=== PATIENT | female | born 1955 | race Caucasian/White ===

== ENCOUNTER 2019-04-21 10:51 | Outpatient (CLI) | payer BC, SELFPAY ==
--- NOTE | 2019-04-21 12:15 | DI.RAD_ITS ---
SYMPTOM/DIAGNOSIS: WRIST PAIN, M25.532 LEFT WRIST: Three views were obtained. Carpal alignment appears within normal limits. No significant bony abnormality is seen.
== END 2019-04-21 11:11 ==
PROVIDERS: PCP Internal Medicine; Visit Provider Specialist/Technologist Athletic Trainer
DX: M25.532 Pain in left wrist (principal)
CPT/HCPCS: 73110

== ENCOUNTER 2019-06-02 12:53 | Outpatient (REF) | payer BC, SELFPAY ==
[2019-06-02 21:35] LABS: Abs Immature Grans 0.01 k/cumm (0.0-0.09); Absolute Basophil Count 0.03 k/cumm (0.0-0.2); Absolute Eosinophil Count 0.16 k/cumm (0.0-0.7); Absolute Lymphocyte Count 2.38 k/cumm (1.2-3.4); Absolute Monocyte Count 0.36 k/cumm (0.11-0.7); Absolute Neutrophil Count 3.07 k/cumm (1.2-6.7); Basophils % 0.5; Eosinophils % 2.7; HGB 13.6 g/dL (12.0-15.5); Immature Grans % 0.2; Lymphocytes % 39.6; Mean Corp. HGB Concentration 32.4 g/dL (32.0-36.0); Mean Corpuscular Hemoglobin 29.3 pg (27.0-33.0); Mean Corpuscular Volume 90.5 fL (80-95); Mean Platelet Volume 10.1 fL (8.0-11.0); Platelet Count 263 x1000/uL (130-400); RBC 4.64 m/cumm (4.00-5.20); RBC Distribution Width 14.5 % (11.7-14.6); White Blood Cell Count 6.01 k/cumm (4.4-10.8)
[2019-06-02 21:57] LABS: ALT 36 U/L (14-59); AST 25 U/L (15-37); Albumin 3.7 g/dL (3.4-5.0); Alkaline Phosphatase 87 U/L (46-116); Anion Gap 7.8 mmol/L (3-11); BUN 15 mg/dL (7-18); Bilirubin, Total 0.4 mg/dL (0.2-1.0); CO2 30.2 mmol/L (21.0-32.0); CREATININE 0.64 mg/dL (0.55-1.02); Calcium 9.1 mg/dL (8.5-10.1); Chloride 104 mmol/L (98-107); Glucose 90 mg/dL (70-100); Potassium 4.4 mmol/L (3.5-5.1); Sodium 142 mmol/L (136-145); TSH (W/Ref FT4) 0.82 uIU/mL (0.36-3.74); Total Protein 6.9 g/dL (6.4-8.2)
[2019-06-04 11:43] LABS: Lyme Ab w Rflx to Lyme Confirm Negative
[2019-06-05 17:00] LABS: Anaplasma phagocytophilum Negative (Negative); B. miyamotoi PCR Negative (Negative); Babesia divergens/MO-1 Negative (Negative); Babesia duncani Negative (Negative); Babesia microti Negative (Negative); Ehrlichia chaffeensis Negative (Negative); Ehrlichia ewingii/canis Negative (Negative); Ehrlichia muris eauclairensis Negative (Negative)
== END 2019-06-02 13:13 ==
LOC: NCHCN 12:53
PROVIDERS: PCP Internal Medicine; Visit Provider Specialist/Technologist Athletic Trainer
DX: Z00.00 Encounter for general adult medical examination without abnormal findings (principal); R53.83 Other fatigue
CPT/HCPCS: 80053; 87798; 84443; 85025; 86618

== ENCOUNTER 2020-07-15 14:44 | Outpatient (REF) | payer BC, SELFPAY ==
[2020-07-20 02:02] LABS: SARS-CoV-2 RNA Undetected (Undetected); SARS-CoV-2 Specimen Source Nasal
== END 2020-07-15 15:04 ==
LOC: NCHCN 14:44
PROVIDERS: PCP Internal Medicine; Visit Provider Internal Medicine
DX: Z11.59 Encounter for screening for other viral diseases (principal)
CPT/HCPCS: U0003

== ENCOUNTER 2020-09-05 18:21 | Outpatient (REF) | payer BC, SELFPAY ==
[2020-09-05 20:30] LABS: Abs Immature Grans 0.02 10^3/uL (0.0-0.06); Absolute Basophil Count 0.02 10^3/uL (0.0-0.2); Absolute Eosinophil Count 0.05 10^3/uL (0.0-0.7); Absolute Lymphocyte Count 2.58 10^3/uL (1.2-3.4); Absolute Monocyte Count 0.42 10^3/uL (0.1-0.8); Absolute Neutrophil Count 4.59 10^3/uL (1.2-6.7); Basophils % 0.3; Eosinophils % 0.7; HCT 40.5 % (36.0-46.0); Immature Grans % 0.3; Lymphocytes % 33.6; MCH 29.3 pg (27.0-33.0); MCHC 32.1 % (32.0-36.0); MCV 91.4 fL (80-95); MPV 9.8 fL (8.0-11.0); Monocytes % 5.5; Neutrophils % 59.6; Nucleated RBC 0 %; Platelet Count 226 10^3/uL (130-400); RBC 4.43 10^6/uL (3.93-5.22); RDW 14.4 % (11.7-14.6); RDW-SD 48.7 fL; WBC 7.68 10^3/uL (4.4-10.8)
[2020-09-05 21:03] LABS: ALT 23 U/L (14-59); AST 22 U/L (15-37); Albumin 3.7 g/dL (3.4-5.0); Alkaline Phosphatase 78 U/L (46-116); BUN 17 mg/dL (7-18); Bilirubin, Total 0.3 mg/dL (0.2-1.0); CREATININE 0.61 mg/dL (0.55-1.02); Calcium 8.7 mg/dL (8.5-10.1); Glucose 87 mg/dL (74-106); TSH (W/Ref FT4) 0.72 uIU/mL (0.36-3.74); Total Protein 6.5 g/dL (6.4-8.2)
[2020-09-05 21:07] LABS: Chloride 104 mmol/L (98-107); Potassium 4.1 mmol/L (3.5-5.1); Sodium 139 mmol/L (136-145)
== END 2020-09-05 18:41 ==
LOC: NCHCN 18:21
PROVIDERS: PCP Internal Medicine; Visit Provider Family Medicine
DX: R53.83 Other fatigue (principal); R42 Dizziness and giddiness
CPT/HCPCS: 80053; 84443; 85025

== ENCOUNTER 2020-11-04 04:23 | Outpatient (CLI) | payer BC, SELFPAY ==
--- NOTE | 2020-11-04 | DI.MAMMO_ITS ---
EXAM: MG MAMMO SCREENING CLINICAL HISTORY: SCREENING, Z12.31 TECHNIQUE: Bilateral full field digital CC and MLO mammographic images were obtained with 3D tomosyn thesis and utilizing computer aided detection (CAD). COMPARISON: Available for comparison. FINDINGS: Masses/Architectural Distortion: There is an asymmetry in the upper left breast on the MLO view. Microcalcifications: No suspicious pleomorphic-type are seen. Skin Thickening/Nipple Retraction: None. IMPRESSION: 1. Asymmetry in the upper left breast on the MLO view 6 cm from the nipple. 2. This area should be further evaluated with spot compression view. Ultrasound may be indicated at that time. BI-RADS Category 0 - Assessment Incomplete: Need additional imaging evaluation Breast Density - Category C - Heterogeneously dense Breast density category C or D implies that the patient has dense breast tissue. Dense breast tissue is very common and is not abnormal but dense breast tissue can make it harder to find cancer on a ma mmogram. Also, dense breast tissue may increase their breast cancer risk. This information about the result of the mammogram report was provided to the patient to raise their awareness. Use this report when you speak with the patient about their risks for breast cancer, which includes their family hist ory. At that time, you may recommend for more screening tests (Ultrasound or MRI) as they might be us eful based on their risk. A negative radiographic report should not delay biopsy if a dominant or clinically suspicious mass is present. Up to ten percent of cancers are not identified on mammography. A negative report may reinforce clinical impression. Adenosis and dense breasts may obscure an underlying neoplasm. False positive reports average 6 to 10%. Patient will receive a letter notifying them of these results.
== END 2020-11-04 04:43 ==
PROVIDERS: PCP Internal Medicine; Visit Provider Nurse Practitioner Women's Health
DX: Z12.31 Encounter for screening mammogram for malignant neoplasm of breast (principal); R92.8 Other abnormal and inconclusive findings on diagnostic imaging of breast
CPT/HCPCS: 77063; 77067

== ENCOUNTER 2020-11-09 02:30 | Outpatient (CLI) | payer BC, SELFPAY ==
--- NOTE | 2020-11-09 | DI.US_ITS ---
EXAM: MG MAMMO SCREEN CALL BACK UNI and U/S breast LT limited CLINICAL HISTORY: F/U MAMMO, ASYMMETRY UPPER BREAST. TECHNIQUE: Craniocaudal and mediolateral oblique Full Field Digital Mammography views of the left br east with Computer Aided Diagnosis followed by Tomosynthesis and left breast ultrasound. COMPARISON: Previous for comparison. FINDINGS: Mammography/Tomosynthesis: Masses/Architectural Distortion: None seen. Microcalcifictions: No suspicious pleomorphic-type are seen. Skin Thickening/Nipple Retraction: None. Left breast US: Echotexture: Normal appearance of the glandular tissue. Shadowing: No suspicious foci. Cyst: None. Solid lesions: None seen. Ductal dilation: None. IMPRESSION: 1. No evidence of malignancy is noted. 2. A six-month follow-up left mammogram is recommended for re-evaluation. 3. The findings were discussed with the patient on the date of the examination. BI-RADS Category 3 - 6 month - Probably Benign Finding: Recommend follow-up mammography in 6 months Breast Density - Category C - Heterogeneously dense Breast density Category C or D implies that the patient has dense breast tissue. Dense breast tissue can make it harder to find cancer on a mammogram. Dense breast tissue is also associated with an incr eased risk of breast cancer. This information about the result of the mammogram report was provided to the patient to raise their awareness. Use this report when you speak with the patient about their risks for breast cancer, which includes their family history. At that time, you may recommend additional screening tests (Ultrasoun d or MRI) as these tests may add significant information. A negative radiographic report should not delay biopsy if a dominant or clinically suspicious mass is present. Up to ten percent of cancers are not identified on mammography. A negative report may reinforce clinical impression. Adenosis and dense breasts may obscure an underlying neoplasm. False positive reports average 6 to 10%. Patient will receive a letter notifying them of these results.
== END 2020-11-09 02:50 ==
PROVIDERS: PCP Internal Medicine; Visit Provider Nurse Practitioner Women's Health
DX: Z12.31 Encounter for screening mammogram for malignant neoplasm of breast (principal); R92.8 Other abnormal and inconclusive findings on diagnostic imaging of breast; N64.59 Other signs and symptoms in breast
CPT/HCPCS: 76642; 77063; 77067

== ENCOUNTER 2020-12-19 21:32 | Outpatient (REF) | payer BC, SELFPAY ==
[2020-12-21 10:51] LABS: Lyme Ab w Rflx to Lyme Confirm Negative (Negative)
[2020-12-21 12:53] LABS: COVID-19 RT-PCR UVMMC Result Negative (Negative)
[2020-12-22 17:23] LABS: Anaplasma phagocytophilum Negative (Negative); B. miyamotoi PCR Negative (Negative); Babesia divergens/MO-1 Negative (Negative); Babesia duncani Negative (Negative); Babesia microti Negative (Negative); Ehrlichia chaffeensis Negative (Negative); Ehrlichia ewingii/canis Negative (Negative); Ehrlichia muris eauclairensis Negative (Negative)
== END 2020-12-19 21:33 | disposition home or self-care (01) ==
LOC: NCHCN 21:32
PROVIDERS: PCP Internal Medicine; Visit Provider Internal Medicine
DX: R53.83 Other fatigue (principal); Z20.822 Contact with and (suspected) exposure to COVID-19
CPT/HCPCS: 87798; U0003; 86618

== ENCOUNTER 2020-12-30 15:26 | Outpatient (CLI) | payer BC, SELFPAY ==
--- NOTE | 2020-12-30 12:34 | DI.RAD_ITS ---
Exam(s) XR RIBS RT W PA LAT CHEST EXAM: XR RIBS RT W PA LAT CHEST CLINICAL HISTORY: PLEURITIC CHEST PAIN, R07.81, CHEST WALL PAIN, NO TRAUMA TECHNIQUE: 2D digital imaging was performed. COMPARISON: No exams were available for comparison FINDINGS: MEDIASTINUM: Normal. HEART: Normal. PULMONARY VASCULATURE: Normal. LUNGS: Clear. PLEURAL SPACE: No pleural effusion or pneumothorax. BONE:Normal. RIGHT RIBS: Normal. OTHER FINDINGS:Normal. IMPRESSION: 1. No acute pulmonary findings. 2. Unremarkable right ribs. DATA REPOSITORY: RADIATION DOSE DELIVERED:
== END 2020-12-30 15:46 ==
PROVIDERS: PCP Internal Medicine; Visit Provider Internal Medicine
DX: R07.81 Pleurodynia (principal); R07.89 Other chest pain
CPT/HCPCS: 71046; 71100

== ENCOUNTER 2022-01-31 21:36 | Outpatient (REF) | payer MEDICARE, BC, SELFPAY ==
[2022-01-31 21:36] LABS: Abs Immature Grans 0.01 10^3/uL (0.0-0.06); Absolute Basophil Count 0.06 10^3/uL (0.0-0.2); Absolute Eosinophil Count 0.16 10^3/uL (0.0-0.7); Absolute Lymphocyte Count 2.98 10^3/uL (1.2-3.4); Absolute Monocyte Count 0.34 10^3/uL (0.1-0.8); Absolute Neutrophil Count 2.82 10^3/uL (1.2-6.7); Basophils % 0.9; Eosinophils % 2.5; HGB 13.4 g/dL (11.2-15.7); Immature Grans % 0.2; Lymphocytes % 46.8; MCH 28.9 pg (27.0-33.0); MCHC 31.9 % (32.0-36.0); MCV 91 fL (80-95); MPV 10.3 fL (8.0-11.0); Monocytes % 5.3; Neutrophils % 44.3; Platelet Count 282 10^3/uL (130-400); RBC 4.64 10^6/uL (3.93-5.22); RDW 14.5 % (11.7-14.6); RDW-SD 48.3 fL; WBC 6.37 10^3/uL (4.4-10.8)
[2022-01-31 21:47] LABS: ALT 29 U/L (14-59); AST 27 U/L (15-37); Albumin 3.9 g/dL (3.4-5.0); Alkaline Phosphatase 77 U/L (46-116); Anion Gap 8.2 mmol/L (3-11); BUN 16 mg/dL (7-18); Bilirubin, Total 0.3 mg/dL (0.2-1.0); CO2 28.8 mmol/L (21.0-32.0); CREATININE 0.6 mg/dL (0.55-1.02); Calcium 9.2 mg/dL (8.5-10.1); Chloride 104 mmol/L (98-107); Glucose 83 mg/dL (74-106); Lipase 125 U/L (73-393); Potassium 3.9 mmol/L (3.5-5.1); Sodium 141 mmol/L (136-145); Total Protein 6.6 g/dL (6.4-8.2)
== END 2022-01-31 21:37 | disposition home or self-care (01) ==
LOC: NCHCN 21:36
PROVIDERS: PCP Internal Medicine; Visit Provider Family Medicine
DX: K30 Functional dyspepsia (principal)
CPT/HCPCS: 80053; 83690; 85025

== ENCOUNTER 2022-05-03 14:57 | Outpatient (REF) | payer MEDICARE, BC, SELFPAY ==
[2022-05-03 20:59] LABS: Abs Immature Grans 0.01 10^3/uL (0.0-0.06); Absolute Basophil Count 0.05 10^3/uL (0.0-0.2); Absolute Eosinophil Count 0.15 10^3/uL (0.0-0.7); Absolute Lymphocyte Count 2.99 10^3/uL (1.2-3.4); Absolute Monocyte Count 0.35 10^3/uL (0.1-0.8); Absolute Neutrophil Count 2.69 10^3/uL (1.2-6.7); Basophils % 0.8; Eosinophils % 2.4; HCT 40.8 % (36.0-46.0); HGB 13.2 g/dL (11.2-15.7); Immature Grans % 0.2; Lymphocytes % 47.9; MCH 29.4 pg (27.0-33.0); MCHC 32.4 % (32.0-36.0); MCV 91 fL (80-95); MPV 9.7 fL (8.0-11.0); Monocytes % 5.6; Neutrophils % 43.1; Platelet Count 273 10^3/uL (130-400); RBC 4.49 10^6/uL (3.93-5.22); RDW 13.7 % (11.7-14.6); RDW-SD 46.3 fL; WBC 6.24 10^3/uL (4.4-10.8)
[2022-05-03 21:01] LABS: ESR 2 mm/hr (0-30)
[2022-05-03 21:14] LABS: C-Reactive Protein < 0.05 mg/dL (0.0-0.3)
[2022-05-03 21:25] LABS: D-Dimer 439 ng/mlFEU (<500)
== END 2022-05-03 14:58 | disposition home or self-care (01) ==
LOC: LBN 14:57
PROVIDERS: PCP Internal Medicine; Visit Provider Nurse Practitioner Family
DX: M79.604 Pain in right leg (principal)
CPT/HCPCS: 85652; 85025; 85379; 86140

== ENCOUNTER → 2022-05-03 15:27 | Outpatient (CLI) | payer MEDICARE, BC, SELFPAY ==
--- NOTE | 2022-05-03 | DI.RAD_ITS ---
Exam(s) XR TIB/FIB RT EXAM: XR TIB/FIB RT CLINICAL HISTORY: RIGHT LEG PAIN-M79.604. TECHNIQUE: 2D digital imaging was performed. COMPARISON: No exams were available for comparison FINDINGS: Two views No fracture evident. Bone density age-appropriate. No osseous lesions. No radiopaque body. IMPRESSION: Fracture evident. DATA REPOSITORY: RADIATION DOSE DELIVERED:
== END ==
PROVIDERS: PCP Internal Medicine; Visit Provider Nurse Practitioner Family
DX: M79.604 Pain in right leg (principal)
CPT/HCPCS: 73590

== ENCOUNTER 2022-09-22 13:32 | Emergency (ER) | payer MEDICARE, BC, SELFPAY ==
[2022-09-22] VITALS (42 sets, daily range): BP systolic 102–143; BP diastolic 48–83; PULSE 55–94; RESP 16–20; TEMP 35.9; O2SAT 95–100
--- NOTE | 2022-09-22 13:30 | RT.EKG_ITS ---
APPROVED REPORT Exam: Resting ECG Reason for Exam: chest Pain Patient Location: E HR:65 bpm ECG Measurements Heart Rate 65 AXIS DE 175 P -20 QRSd 101 QRS 41 QT 403 T 23 QTc 418 Conclusion Sinus rhythm...normal P axis, V-rate 60- 99
--- NOTE | 2022-09-22 14:00 | DI.RAD_ITS ---
Exam(s) XR PORTABLE CHEST AP EXAM: XR PORTABLE CHEST AP CLINICAL HISTORY: Chest Pain, SOB. TECHNIQUE: 2D digital imaging was performed. COMPARISON: CR XR RIBS RT W PA LAT CHEST from 12/30/2020 FINDINGS: Single AP portable view. Heart size is upper normal. The mediastinum is not widened. Lungs are clear. No infiltrates nor obvious pleural effusions. Chronic appearing deformity of the left humeral head-neck probably healed fracture site. IMPRESSION: No acute pulmonary findings on this single AP portable view of the chest. DATA REPOSITORY: RADIATION DOSE DELIVERED:
--- NOTE | 2022-09-22 14:06 | ED.GENADUL_ITS ---
Discharge Plan Disposition Patient Disposition: Home Condition: Stable Discharge Details Clinical Impression: Right-sided chest pain, COVID-19 Primary Care Provider: French Richter ED Provider: Gianni Martinez Home Meds and New Rx's Prescriptions: Continued multivitamin [Daily Multi-Vitamin] 1 EACH tablet 1 tab PO DAILY Tumeric 1 cap PO DAILY ibuprofen 200 MG tablet 400 mg PO PRN PRN fluticasone propionate 50 mcg/actuation spray,suspension 1 spray INTRANASAL DAILY Label Comments: SPRAY 1 SPRAY INTO BOTH NOSTRILS ONCE A DAY NEEDED biotin 500 mcg Capsule 500 mcg PO DAILY Discharge Instructions Instructions: Chest Pain (ED), COVID-19 (Coronavirus Disease 2019) (ED) Additional Instructions: Work-up today is positive for COVID, unclear if this is a reinfection or secondary to your infection back in July. Rapid cardiac rule out and CTA of your chest is unremarkable for any obvious emergent process. You have declined any medication for analgesia. Please watch for new or worsening symptoms and return to the ER for any concerns. Otherwise please contact your primary care provider on Saturday to discuss your ER visit and need for outpatient reevaluation. Medical Decision Making <Eduarda Presley NP - Last Filed: 09/22/22 16:06> 67-year-old female presents to the ER with chief complaint of right upper sided chest pain which began prior to arrival this morning. She reports that she woke up with this pain. She was at the grocery store had a headache and had severe worsening increased pain which is worse with deep breathing, it is reproducible to palpation. She also reports some shortness of breath. She recently finished antibiotics approximately a week ago for sinusitis and she also reports prior to that she had COVID. She does endorse cough with yellow productive sputum and drainage nasal drainage. Her headache has improved. No neurodeficits noted. Lungs are clear to auscultation bilaterally. EKG was reviewed by Dr. Lenny RICHARDSON, ER attending, old EKG available for review please see his official report. No evidence of STEMI. Patient was given 324 mg aspirin. Cardiac work-up ordered including serial troponin, D-dimer, portable chest x- ray, fluvid, Differential diagnosis includes but not limited to pneumonia, pneumothorax, costochondritis, CAD, NSTEMI Will consider chest CT pending labs. Majority of the work up is negative initial troponin is within normal limits, D-dimer is elevated at 757 which is slightly over the age-adjusted cut off. She is COVID-positive. CTA rule out PE ordered. Care is to be handed off to oncoming provider Gianni Martinez pending CT result and serial troponin at 1700. Medical Records Medical records reviewed: Yes I reviewed the patient's medical records. Lab Data Lab results reviewed: Yes I reviewed the patient's lab results. Labs: Laboratory Tests Range/Units 09/22/22 09/22/22 09/22/22 14:00 14:00 14:00 WBC (4.4-10.8) 10^3/uL 5.89 RBC (3.93-5.22) 10^6/uL 4.66 Hgb (11.2-15.7) g/dL 13.4 Hct (36.0-46.0) % 41.3 MCV (80-95) fL 89 MCH (27.0-33.0) pg 28.8 MCHC (32.0-36.0) % 32.4 RDW (11.7-14.6) % 13.9 Plt Count (130-400) 10^3/uL 261 MPV (8.0-11.0) fL 9.1 Immature Gran % 0.2 Neutrophils % 47.2 Lymphocytes % 44.5 Monocytes % 5.9 Eosinophils % 1.9 Basophils % 0.3 Nucleated RBC % (0.0-0.3) % 0.0 Absolute Neutrophils (1.2-6.7) 10^3/uL 2.78 Absolute Lymphocytes (1.2-3.4) 10^3/uL 2.62 Absolute Monocytes (0.1-0.8) 10^3/uL 0.35 Absolute Eosinophils (0.0-0.7) 10^3/uL 0.11 Absolute Basophils (0.0-0.2) 10^3/uL 0.02 D-Dimer (<500) ng/mlFEU 757 H Sodium (136-145) mmol/L 141 Potassium (3.5-5.1) mmol/L 4.1 Chloride (98-107) mmol/L 105 Carbon Dioxide (21.0-32.0) mmol/L 28.4 Anion Gap (3-11) mmol/L 7.6 BUN (7-18) mg/dL 15 Creatinine (0.55-1.02) mg/dL 0.6 Est GFR (CKD-EPI 2020) (mL/min/1.73m2) 97.71 Glucose (74-106) mg/dL 89 Calcium (8.5-10.1) mg/dL 9.3 Magnesium (1.8-2.4) mg/dL 1.8 Total Bilirubin (0.2-1.0) mg/dL 0.4 AST (15-37) U/L 28 ALT (14-59) U/L 28 Alkaline Phosphatase (46-116) U/L 81 Troponin I (<or=60) ng/L < 50 Total Protein (6.4-8.2) g/dL 7.1 Albumin (3.4-5.0) g/dL 3.8 COVID-19 Source SARS-CoV-2 (PCR) (Negative) Influenza Type A (PCR) (Negative) Influenza Type B (PCR) (Negative) RSV (PCR) (Negative) Range/Units 09/22/22 14:15 WBC (4.4-10.8) 10^3/uL RBC (3.93-5.22) 10^6/uL Hgb (11.2-15.7) g/dL Hct (36.0-46.0) % MCV (80-95) fL MCH (27.0-33.0) pg MCHC (32.0-36.0) % RDW (11.7-14.6) % Plt Count (130-400) 10^3/uL MPV (8.0-11.0) fL Immature Gran % Neutrophils % Lymphocytes % Monocytes % Eosinophils % Basophils % Nucleated RBC % (0.0-0.3) % Absolute Neutrophils (1.2-6.7) 10^3/uL Absolute Lymphocytes (1.2-3.4) 10^3/uL Absolute Monocytes (0.1-0.8) 10^3/uL Absolute Eosinophils (0.0-0.7) 10^3/uL Absolute Basophils (0.0-0.2) 10^3/uL D-Dimer (<500) ng/mlFEU Sodium (136-145) mmol/L Potassium (3.5-5.1) mmol/L Chloride (98-107) mmol/L Carbon Dioxide (21.0-32.0) mmol/L Anion Gap (3-11) mmol/L BUN (7-18) mg/dL Creatinine (0.55-1.02) mg/dL Est GFR (CKD-EPI 2020) (mL/min/1.73m2) Glucose (74-106) mg/dL Calcium (8.5-10.1) mg/dL Magnesium (1.8-2.4) mg/dL Total Bilirubin (0.2-1.0) mg/dL AST (15-37) U/L ALT (14-59) U/L Alkaline Phosphatase (46-116) U/L Troponin I (<or=60) ng/L Total Protein (6.4-8.2) g/dL Albumin (3.4-5.0) g/dL COVID-19 Source Nasopharynx SARS-CoV-2 (PCR) (Negative) Positive A Influenza Type A (PCR) (Negative) Negative Influenza Type B (PCR) (Negative) Negative RSV (PCR) (Negative) Negative <DEYSI Lawton - Last Filed: 09/22/22 18:34> 67-year-old female presents to the ER with chief complaint of right upper sided chest pain which began prior to arrival this morning. She reports that she woke up with this pain. She was at the grocery store had a headache and had severe worsening increased pain which is worse with deep breathing, it is reproducible to palpation. She also reports some shortness of breath. She recently finished antibiotics approximately a week ago for sinusitis and she also reports prior to that she had COVID. She does endorse cough with yellow productive sputum and drainage nasal drainage. Her headache has improved. No neurodeficits noted. Lungs are clear to auscultation bilaterally. EKG was reviewed by Dr. Lenny RICHARDSON, ER attending, old EKG available for review please see his official report. No evidence of STEMI. Patient was given 324 mg aspirin. Cardiac work-up ordered including serial troponin, D-dimer, portable chest x- ray, fluvid, Differential diagnosis includes but not limited to pneumonia, pneumothorax, costochondritis, CAD, NSTEMI Will consider chest CT pending labs. Majority of the work up is negative initial troponin is within normal limits, D-dimer is elevated at 757 which is slightly over the age-adjusted cut off. She is COVID-positive. CTA rule out PE ordered. Care is to be handed off to oncoming provider Gianni Martinez pending CT result and serial troponin at 1700. 1530: Gianni Martinez PA-C I assumed care of this 67-year-old female from my colleague PACO Presley, please see her initial HPI and examination. At time of signout awaiting results of CTA and delta troponin. Delta troponin remains less than 50. CTA unremarkable for PE. Discussed CTA and delta troponin results with patient. Patient reports a dull ache, reproducible right side of her chest. Lungs are clear to auscultation. She is speaking in full sentences, O2 sat 97% on room air, remains hemodynamically stable. We discussed analgesia such as Toradol but patient declined any medication, reports that she does not want to mask the symptoms. Patient is relieved that her work-up is unremarkable and she is comfortable discharge. We did discuss that her COVID is positive, difficult to say whether this is a long COVID from her initial infection back in July or if this is reinfection, patient does report URI-like symptoms for the past 3 weeks. Clinically she appears well, no acute respiratory symptoms. Standard discharge and return precautions were provided. Patient understands, is agreeable to this plan, and has no additional questions or concerns upon discharge. This documentation was generated using [employer] dictation system, please disregard any oddities of phrase or misspellings. Medical Records Medical records reviewed: Yes I reviewed the patient's medical records. Imaging Data Radiologic Study: Attestation: I personally reviewed and interpreted this imaging study as follows: Imaging: CT Scan Radiologist's impression: PROCEDURE INFORMATION: Exam: CTA Chest With Contrast Exam date and time: 09/22/2022 4:54 PM Age: 67 years old Clinical indication: Other: Chest pain, SOB, R/O pe elevated dimer TECHNIQUE: Imaging protocol: Computed tomographic angiography of the chest with contrast. 3D rendering (Not supervised by radiologist): MIP and/or 3D reconstructed images were created by the technologist. Contrast material: OMNIPAQUE 350; Contrast volume: 80 ml; Contrast route: INTRAVENOUS (IV); COMPARISON: CT CHEST FOR PULMONARY EMBOLUS 09/14/2016 10:22 PM FINDINGS: Pulmonary arteries: Normal. No pulmonary emboli. Aorta: Unremarkable. No aortic aneurysm. No aortic dissection. Lungs: Unremarkable. No consolidation. No masses. Pleural spaces: Unremarkable. No pneumothorax. No pleural effusion. Heart: Unremarkable. No cardiomegaly. No pericardial effusion. Lymph nodes: Unremarkable. No enlarged lymph nodes. Diaphragm: Small hiatal hernia. There is small hiatal hernia. Liver: 0.6 cm in the anterior right dome liver unchanged is a small cyst hemangioma. Bones/joints: There is compression fracture of T4 with moderate to marked loss of height. There is mild loss of height superior endplate of T6-T7 and superior endplate L1. These fractures have been stable since prior exam. L1 fracture was not previously evaluated. There is old fracture of the posterior 1st rib. Soft tissues: Unremarkable.IMPRESSION: 1. No pulmonary embolism or aortic dissection. 2. No active pulmonary disease. 3. Small hiatal hernia. HPI <Eduarda Presley NP - Last Filed: 09/22/22 16:06> General Mode of arrival: ambulatory . Date/Time Provider Initiated Documentation: 09/22/22 14:01 . Limitations to Documentation: no limitations . Information obtained by: patient, RN notes reviewed and old records reviewed . HPI Narrative: 67-year-old female presents to the ER with chief complaint of right upper sided chest pain which began prior to arrival this morning. She reports that she woke up with this pain. She was at the grocery store had a headache and had severe worsening increased pain which is worse with deep breathing, it is reproducible to palpation. She also reports some shortness of breath. She recently finished antibiotics approximately a week ago for sinusitis and she also reports prior to that she had COVID. She does endorse cough with yellow productive sputum and drainage nasal drainage. Her headache has improved. No neurodeficits noted. Lungs are clear to auscultation bilaterally. Related Data Home Medications Medication Instructions Recorded Confirmed Tumeric 1 cap PO DAILY 09/14/16 09/22/22 multivitamin (Daily Multi-Vitamin 1 tab PO DAILY 09/14/16 09/22/22 tablet) ibuprofen 200 mg tablet 400 mg PO PRN PRN 05/01/17 09/22/22 biotin 500 mcg capsule 500 mcg PO DAILY 09/22/22 09/22/22 fluticasone propionate 50 1 spray intranasal DAILY 09/22/22 09/22/22 mcg/actuation nasal spray,suspension Allergies Allergy/AdvReac Type Severity Reaction Status Date / Time No Known Allergies Allergy Unverified 09/22/22 13:51 General Stated Complaint: Chest Pain PARKER: 3 Review of Systems <Eduarda Presley NP - Last Filed: 09/22/22 16:06> All systems reviewed & are unremarkable except as noted in HPI and below ENT Ears, Nose, Mouth, and Throat: Denies dizziness Cardiovascular Cardiovascular: Reports as per HPI, Reports chest pain at rest, Denies syncope, Denies pedal edema, Denies leg edema, Reports radiating jaw, neck or arm pain (Right), Reports dyspnea and Reports dyspnea on exertion Respiratory Respiratory: Reports as per HPI, Reports change in phlegm color, Reports cough, Denies hemoptysis, Reports pain with cough, Reports dyspnea, Reports dyspnea on exertion and Denies wheezing Gastrointestinal Gastrointestinal: Denies abdominal pain, Denies diarrhea, Denies nausea and Denies vomiting Neurologic Neurologic: Denies confusion, Denies dizziness and Denies syncope Psychiatric Psychiatric: Denies confusion Allergic/Immunologic Allergic/Immunologic: Denies wheezing PFSH <Eduarda Presley NP - Last Filed: 09/22/22 16:06> All Active Problems (Updated 09/22/22 @ 18:33 by DEYSI Lawton) Right-sided chest pain (Acute) COVID-19 (Acute) Social History Smoking/Tobacco Use Status: Never Smoking risk assessment performed?: Yes Alcohol Intake: current Alcohol Intake frequency: holidays/special occasions only Drug use: Never Substance use type: does not use Do you feel safe at home: Yes Do you feel safe in your relationship?: Yes Exam <Eduarda Presley NP - Last Filed: 09/22/22 16:06> Narrative Exam Narrative: Constitutional: Alert and oriented x3. Appears stated age. Normal body habitus. Head: Normocephalic, no trauma. Eyes: Pupils PERRL, Red reflex noted, EOM's intact. Right horizontal nystagmus noted, eyelids symmetrical without lesions, discharge, or swelling. ENT: Bilateral TM's WNL, External ear normal to inspection, no mastoid TTP, swelling, or erythema, Nasal turbinates boggy, green nasal discharge. Normal dentition, Posterior pharynx WNL, no exudate. Chest: RRR, Normal S1, S2, distal pulses intact. Right-sided chest pain tenderness with palpation which is reproducible. No significant lower extremity swelling, Resp: Lungs clear to auscultation bilaterally, no wheezes, rales, or rhonchi. Abdomen: Soft, non-distended, Normoactive bowel sounds all 4 quads. Musculoskeletal: Normal gait, 5/5 strength to all four extremities. No focal neurodeficits noted. Skin: No suspicious rashes or lesions. Capillary refill less than 2 sec. Neurologic: Cranial nerves II-XII intact. Alert and oriented x 3. Motor: No deficits noted. Sensory: Intact bilaterally all 4 extremities. Reflexes: DTR's intact bilaterally.. Hematologic/Lymphatic: No ecchymosis, no lymphadenopathy. Course <Eduarda Presley NP - Last Filed: 09/22/22 16:06> Vital Signs Vital signs: Vital Signs Temperature 35.9 C L 09/22/22 13:40 Pulse 94 H 09/22/22 13:40 Respiratory Rate 20 09/22/22 13:40 Blood Pressure 143/76 H 09/22/22 13:40 Pulse Oximetry 98 09/22/22 13:40 Temperature 35.9 C L 09/22/22 13:40 Temperature Source Skin 09/22/22 13:40 Pulse 94 H 09/22/22 13:40 Respiratory Rate 20 09/22/22 13:54 Respiratory Effort 09/22/22 13:54 Respiratory Depth Normal 09/22/22 13:54 Respiratory Pattern Normal 09/22/22 13:54 Blood Pressure 143/76 H 09/22/22 13:40 Blood Pressure Position Sitting 09/22/22 13:40 Pulse Oximetry 98 09/22/22 13:40 Oxygen Delivery Method Room Air 09/22/22 13:40 Oxygen Flow Rate 0 09/22/22 13:40 Pain Level 8 09/22/22 13:54 Sign Out <Eduarda Presley NP - Last Filed: 09/22/22 16:06> Sign Out Data: Sign Out Comment: Covid Positive, Pending CTA Chest R/O PE. Right sided Chest pain SOB, D-DImer elevated. Neg CXR Last updated by Eduarda Presley NP at 09/22/22 16:02 PAWSS <Eduarda Presley NP - Last Filed: 09/22/22 16:06> Have you Been Recently Intoxicated or Drunk Within the Last 30 days?: No Have you Ever Experienced Previous Episodes of Alcohol Withdrawal?: No Have you ever Experienced Withdrawal Seizures?: No Have you ever Experienced Delirium Tremens(DT)s?: No Have you ever undergone Alcohol Rehabilitation Treatment (i.e, inpt ot outpatient treatment programs)?: No Have you ever Experienced Blackouts?: No Have you ever Combined Alcohol with other Downers within the last 90 days?: No Have you ever Combined Alcohol with any other Substance of Abuse during the last 90 days?: No Positive Blood Alcohol level on Presentation? [PCS.BAL]: No Evidence of Increased Autonomic Activity (i.e. HR>120, tremor, sweating, agitation, nausea)?: No Result: 0 <DEYSI Lawton - Last Filed: 09/22/22 18:34> Result: 0
[2022-09-22] MEDS: Aspirin 81 MG CHEW 324 MG CH (14:17)
[2022-09-22 14:26] LABS: Abs Immature Grans 0.01 10^3/uL (0.0-0.06); Absolute Basophil Count 0.02 10^3/uL (0.0-0.2); Absolute Eosinophil Count 0.11 10^3/uL (0.0-0.7); Absolute Lymphocyte Count 2.62 10^3/uL (1.2-3.4); Absolute Monocyte Count 0.35 10^3/uL (0.1-0.8); Absolute Neutrophil Count 2.78 10^3/uL (1.2-6.7); Basophils % 0.3; Eosinophils % 1.9; HCT 41.3 % (36.0-46.0); HGB 13.4 g/dL (11.2-15.7); Immature Grans % 0.2; Lymphocytes % 44.5; MCH 28.8 pg (27.0-33.0); MCHC 32.4 % (32.0-36.0); MCV 89 fL (80-95); MPV 9.1 fL (8.0-11.0); Monocytes % 5.9; Neutrophils % 47.2; Platelet Count 261 10^3/uL (130-400); RBC 4.66 10^6/uL (3.93-5.22); RDW 13.9 % (11.7-14.6); RDW-SD 45.3 fL; WBC 5.89 10^3/uL (4.4-10.8)
[2022-09-22 14:49] LABS: ALT 28 U/L (14-59); AST 28 U/L (15-37); Albumin 3.8 g/dL (3.4-5.0); Alkaline Phosphatase 81 U/L (46-116); Anion Gap 7.6 mmol/L (3-11); BUN 15 mg/dL (7-18); Bilirubin, Total 0.4 mg/dL (0.2-1.0); CO2 28.4 mmol/L (21.0-32.0); CREATININE 0.6 mg/dL (0.55-1.02); Calcium 9.3 mg/dL (8.5-10.1); Chloride 105 mmol/L (98-107); Estimated GFR 97.71 (mL/min/1.73m2); Glucose 89 mg/dL (74-106); Magnesium 1.8 mg/dL (1.8-2.4); Potassium 4.1 mmol/L (3.5-5.1); Sodium 141 mmol/L (136-145); Total Protein 7.1 g/dL (6.4-8.2); Troponin I < 50 ng/L (<or=60)
--- NOTE | 2022-09-22 14:53 | DI.VRAD_ITS ---
Addendum created by Aaron Tracy DO on 09/22/2022 2:54:07 PM EST: Bones/joints: Stable old healed fracture of the left proximal humerus. Initial report created on 09/22/2022 2:53:19 PM EST: PROCEDURE INFORMATION: Exam: XR Chest Exam date and time: 09/22/2022 2:16 PM Age: 67 years old Clinical indication: Other: Chest pain and SOB TECHNIQUE: Imaging protocol: Radiologic exam of the chest. Views: 1 view. COMPARISON: CR XR RIBS RT W PA LAT CHEST 12/30/2020 12:23 PM FINDINGS: Lungs: Unremarkable. No consolidation. Pleural spaces: Unremarkable. No pleural effusion. No pneumothorax. Heart/Mediastinum: Unremarkable. No cardiomegaly. Bones/joints: Stable old healed fracture of the left proximal. IMPRESSION: No acute findings. Dictated and Authenticated by: Aaron Tracy MD. Ordering:EROS Lerner MD
--- NOTE | 2022-09-22 15:00 | DI.CT_ITS ---
Exam(s) CT CHEST PE CTA EXAM: CT CHEST PE CTA CLINICAL HISTORY: Chest pain, SOB, R/O PE Elevated Dimer. TECHNIQUE: Imaging Protocol: CT angiography of the chest was performed using pulmonary embolus chante col. Multi planar reconstructions were performed. CONTRAST MATERIAL: Intravenous: Omnipaque 350 Contrast volume: 100 cc COMPARISON: CT CHEST FOR PULMONARY EMBOLUS from 09/14/2016 FINDINGS: CHEST: PULMONARY ARTERIES: There are no intraluminal filling defects to suggest acute pulmonary emboli. LUNGS: There are no infiltrates nor evidence of pulmonary infarction.. There are no pleural effusions . MEDIASTINUM: There is no hilar nor mediastinal adenopathy. Visualized thyroid unremarkable. CARDIAC: Heart size is upper normal. There is no pericardial effusion.Caliber of the thoracic aorta is within normal limits. No dissection. There is no significant shift of the interventricular septum . PARTIALLY VISUALIZED UPPERMOST ABDOMEN: There is a small well-defined 7 millimeter hypodensity in the upper right hepatic lobe noted which is unchanged from 2017 and therefore a benign cyst. OSSEOUS: No significant osseous lesions.Stable compression fracture of T4, unchanged from 2017.. IMPRESSION: 1. No evidence of acute pulmonary emboli. No evidence of pulmonary infarction.No pleural effusions. 2. Stable compression fracture of T4 which is unchanged from 2017. No new fractures evident. No oss eous lesions. RADIATION DOSE DELIVERED: 374.27mGy.cm Total DLP DATA REPOSITORY: All CT scans at this facility are submitted to the National Radiology Data Registry (NRDR) Dose Index Registry (DIR) with the [employer] (A[employer]). RADIATION OPTIMIZATION: All CT scans at this facility use at least one of these dose optimization te chniques: automated exposure control; mA and/or kV adjustment per patient size (includes targeted exa ms where dose is matched to clinical indication); or iterative reconstruction.
[2022-09-22 15:01] LABS: D-Dimer 757 ng/mlFEU (<500)
[2022-09-22 15:09] LABS: Influenza A PCR Negative (Negative); Influenza B PCR Negative (Negative); RSV PCR Negative (Negative)
[2022-09-22 15:16] LABS: COVID-19 PCR Positive (Negative); Source Nasopharynx
[2022-09-22 16:50] LABS: Troponin I < 50 ng/L (<or=60)
[2022-09-22] MEDS: Omnipaque 350 MG/ML 100 ML BTL 80 ML IJ (16:56)
[2022-09-22] MEDS: Normal Saline - Diluent 50 ML VIAL IJ (16:56)
[2022-09-22] MEDS: Normal Saline Flush 10 ML SYR IVP (16:57)
--- NOTE | 2022-09-22 18:00 | DI.VRAD_ITS ---
PROCEDURE INFORMATION: Exam: CTA Chest With Contrast Exam date and time: 09/22/2022 4:54 PM Age: 67 years old Clinical indication: Other: Chest pain, SOB, R/O pe elevated dimer TECHNIQUE: Imaging protocol: Computed tomographic angiography of the chest with contrast. 3D rendering (Not supervised by radiologist): MIP and/or 3D reconstructed images were created by the technologist. Contrast material: OMNIPAQUE 350; Contrast volume: 80 ml; Contrast route: INTRAVENOUS (IV); COMPARISON: CT CHEST FOR PULMONARY EMBOLUS 09/14/2016 10:22 PM FINDINGS: Pulmonary arteries: Normal. No pulmonary emboli. Aorta: Unremarkable. No aortic aneurysm. No aortic dissection. Lungs: Unremarkable. No consolidation. No masses. Pleural spaces: Unremarkable. No pneumothorax. No pleural effusion. Heart: Unremarkable. No cardiomegaly. No pericardial effusion. Lymph nodes: Unremarkable. No enlarged lymph nodes. Diaphragm: Small hiatal hernia. There is small hiatal hernia. Liver: 0.6 cm in the anterior right dome liver unchanged is a small cyst hemangioma. Bones/joints: There is compression fracture of T4 with moderate to marked loss of height. There is mild loss of height superior endplate of T6-T7 and superior endplate L1. These fractures have been stable since prior exam. L1 fracture was not previously evaluated. There is old fracture of the posterior 1st rib. Soft tissues: Unremarkable. IMPRESSION: 1. No pulmonary embolism or aortic dissection. 2. No active pulmonary disease. 3. Small hiatal hernia. Dictated and Authenticated by: Aaron Tracy MD. Ordering:EROS Lerner MD
== END 2022-09-22 18:41 | disposition home or self-care (01) ==
PROVIDERS: Registered Nurse Emergency; Emergency Provider Physician Assistant; PCP Internal Medicine
DX: U07.1 COVID-19 (principal); K44.9 Diaphragmatic hernia without obstruction or gangrene; H55.00 Unspecified nystagmus
CPT/HCPCS: 36415; 71275; 80053; 87637; 93005; 99284; 99285; 71045; 83735; 84484; 85025; 85379; 93010; J3490

== ENCOUNTER 2022-10-25 01:09 | Outpatient (CLI) | payer MEDICARE, BC, SELFPAY ==
--- NOTE | 2022-10-25 12:00 | DI.MAMMO_ITS ---
Exam(s) MAMMO SCREENING EXAM: MAMMO SCREENING CLINICAL HISTORY: SCREENING, Z12.31 TECHNIQUE: Bilateral full field digital CC and MLO mammographic images were obtained with 3D tomosyn thesis and utilizing computer aided detection (CAD). COMPARISON: Available for comparison. FINDINGS: Masses/Architectural Distortion: There is a area of asymmetric density in the upper central left nadia st on the MLO view. This may represent overlying fibroglandular tissue but a spot compression views requested for further evaluation. Ultrasound may be indicated at that time. Microcalcifications: No suspicious pleomorphic-type are seen. Skin Thickening/Nipple Retraction: None. IMPRESSION: 1. Area of asymmetric breast tissue in the upper left breast on the MLO view. 2. While this may represent overlying fibroglandular tissue, a spot compression views requested for f urther evaluation. Limited left breast ultrasound may be indicated at that time. BI-RADS Category 0 - Assessment Incomplete: Need additional imaging evaluation Breast Density - Category C - Heterogeneously dense Breast density category C or D implies that the patient has dense breast tissue. Dense breast tissue is very common and is not abnormal but dense breast tissue can make it harder to find cancer on a ma mmogram. Also, dense breast tissue may increase their breast cancer risk. This information about the result of the mammogram report was provided to the patient to raise their awareness. Use this report when you speak with the patient about their risks for breast cancer, which includes their family hist ory. At that time, you may recommend for more screening tests (Ultrasound or MRI) as they might be us eful based on their risk. A negative radiographic report should not delay biopsy if a dominant or clinically suspicious mass is present. Up to ten percent of cancers are not identified on mammography. A negative report may reinforce clinical impression. Adenosis and dense breasts may obscure an underlying neoplasm. False positive reports average 6 to 10%. Patient will receive a letter notifying them of these results.
== END 2022-10-25 01:29 ==
LOC: DI 01:09
PROVIDERS: PCP Internal Medicine; Visit Provider Obstetrics & Gynecology
DX: Z12.31 Encounter for screening mammogram for malignant neoplasm of breast (principal); R92.8 Other abnormal and inconclusive findings on diagnostic imaging of breast
CPT/HCPCS: 77063; 77067

== ENCOUNTER 2022-10-30 01:42 | Outpatient (CLI) | payer MEDICARE, BC, SELFPAY ==
--- NOTE | 2022-10-30 10:15 | DI.MAMMO_ITS ---
Exam(s) MG MAMMO SCREEN CALL BACK UNI US BREAST LT COMPLETE EXAM: MAMMO SCREEN CALL BACK UNI- LEFT AND COMPLETE LEFT BREAST ULTRASOUND CLINICAL HISTORY: ASYMMETRIC TISSUE IN UPPER LT BREAST ON MLO VIEW, ? FIBROGLANDULAR TISSUE. TECHNIQUE: Unilateral spot mammographic images obtained with 3D tomosynthesisand utilizing computer aided detection (CAD). . Complete LEFT breast Ultrasound was also performed, including all 4 quadrants, the retroareolar regio n, and the ipsilateral axilla. COMPARISON: Prior mammograms were also reviewed. This additional imaging was performed due to fin dings described on the recent screening mammogram of 10/25/2022. FINDINGS: DIAGNOSTIC MAMMOGRAM: Additional mammographic views performed todayrender this area less concerning. COMPLETE LEFT BREAST ULTRASOUND: Ultrasound performed today reveals no evidence of solid or significant lesions in all 4 quadrants.. Scanning of the ipsilateral axilla reveals no significant adenopathy. IMPRESSION: 1. No radiographic evidence of malignancy. 2. Negative complete left breast ultrasound Appropriate follow-up as discussed by myself with the patient today is repeat LEFT BREAST MAMMOGRAM i n 6 months to ensure mammographic stability. The patient was informed of these findings and recommendations prior to leaving the department today. BI-RADS Category 3 - 6 month - Probably Benign Finding: Recommend follow-up mammography in 6 months Breast Density - Category C - Heterogeneously dense Breast density Category C or D implies that the patient has dense breast tissue. Dense breast tissue can make it harder to find cancer on a mammogram. Dense breast tissue is also associated with an incr eased risk of breast cancer. This information about the result of the mammogram report was provided to the patient to raise their awareness. Use this report when you speak with the patient about their risks for breast cancer, which includes their family history. At that time, you may recommend additional screening tests (Ultrasoun d or MRI) as these tests may add significant information. A negative radiographic report should not delay biopsy if a dominant or clinically suspicious mass is present. Up to ten percent of cancers are not identified on mammography. A negative report may reinforce clinical impression. Adenosis and dense breasts may obscure an underlying neoplasm. False positive reports average 6 to 10%. Patient will receive a letter notifying them of these results.
== END 2022-10-30 02:02 ==
LOC: DI 01:42
PROVIDERS: PCP Internal Medicine; Visit Provider Obstetrics & Gynecology
DX: Z12.31 Encounter for screening mammogram for malignant neoplasm of breast (principal); R92.8 Other abnormal and inconclusive findings on diagnostic imaging of breast
CPT/HCPCS: 76642; 77063; 77067

== ENCOUNTER → 2023-05-08 02:40 | Outpatient (CLI) | payer MEDICARE, BC, SELFPAY ==
--- NOTE | 2023-05-08 | DI.MAMMO_ITS ---
Exam(s) MAMMO DIAGNOSTIC UNI EXAM: MAMMO DIAGNOSTIC UNI CLINICAL HISTORY: 6 MO FU R92.8 ABNL MAMMO LEFT. TECHNIQUE: Craniocaudal and mediolateral oblique Full Field Digital Mammography views of the left br east with Computer Aided Diagnosis followed by Tomosynthesis. COMPARISON: Comparison is made with prior examinations. FINDINGS: Mammography/Tomosynthesis: Masses/Architectural Distortion: None seen. Microcalcifictions: No suspicious pleomorphic-type are seen. Skin Thickening/Nipple Retraction: None. IMPRESSION: 1. No evidence of malignancy is noted. 2. Unless there is more urgent need, follow-up screening mammography is recommended, as per [place] [employer] guidelines. 3. The findings were discussed with the patient on the date of the examination. BI-RADS Category 3 - Probably Benign Finding: Recommend follow-up imaging in 3 months Breast Density - Category C - Heterogeneously dense Breast density Category C or D implies that the patient has dense breast tissue. Dense breast tissue can make it harder to find cancer on a mammogram. Dense breast tissue is also associated with an incr eased risk of breast cancer. This information about the result of the mammogram report was provided to the patient to raise their awareness. Use this report when you speak with the patient about their risks for breast cancer, which includes their family history. At that time, you may recommend additional screening tests (Ultrasoun d or MRI) as these tests may add significant information. A negative radiographic report should not delay biopsy if a dominant or clinically suspicious mass is present. Up to ten percent of cancers are not identified on mammography. A negative report may reinforce clinical impression. Adenosis and dense breasts may obscure an underlying neoplasm. False positive reports average 6 to 10%. Patient will receive a letter notifying them of these results.
== END ==
PROVIDERS: PCP Internal Medicine; Visit Provider Obstetrics & Gynecology
DX: Z12.31 Encounter for screening mammogram for malignant neoplasm of breast (principal); R92.8 Other abnormal and inconclusive findings on diagnostic imaging of breast
CPT/HCPCS: 77061; 77065; G0279

== ENCOUNTER → 2023-10-28 03:08 | Outpatient (CLI) | payer MEDICARE, BC, SELFPAY ==
--- NOTE | 2023-10-28 | DI.MAMMO_ITS ---
Exam(s) MAMMO SCREENING EXAM: MAMMO SCREENING CLINICAL HISTORY: SCREENING MAMMO FOR BREAST CANCER Z12.31. TECHNIQUE: Bilateral full field digital CC and MLO mammographic images were obtained with 3D tomosyn thesis and utilizing computer aided detection (CAD). COMPARISON: Prior mammograms were reviewed. FINDINGS: There has been no significant change in the appearance and distribution of the fibroglandular tissue. Previous area of concern in the left breast is again noted be less concerning on today's study. This was shown to be negative on ultrasound examination of 10/30/2022. No new significant left breast fi ndings. Benign-appearing nodule having appearance of benign intramammary lymph node in the upper-outer quadra nt of the right breast is unchanged from all prior mammograms. There are no new spiculated masses nor malignant appearing microcalcification groups. There is no significant architectural distortion nor skin thickening-retraction. IMPRESSION: No radiographic evidence of malignancy. Stable benign-appearing findings. BI-RADS Category 2 - Benign Findings Breast Density - Category C - Heterogeneously dense Breast density Category C or D implies that the patient has dense breast tissue. Dense breast tissue can make it harder to find cancer on a mammogram. Dense breast tissue is also associated with an incr eased risk of breast cancer. This information about the result of the mammogram report was provided to the patient to raise their awareness. Use this report when you speak with the patient about their risks for breast cancer, which includes their family history. At that time, you may recommend additional screening tests (Ultrasoun d or MRI) as these tests may add significant information. A negative radiographic report should not delay biopsy if a dominant or clinically suspicious mass is present. Up to ten percent of cancers are not identified on mammography. A negative report may reinforce clinical impression. Adenosis and dense breasts may obscure an underlying neoplasm. False positive reports average 6 to 10%. Patient will receive a letter notifying them of these results.
== END ==
PROVIDERS: PCP Internal Medicine; Visit Provider Obstetrics & Gynecology
DX: Z12.31 Encounter for screening mammogram for malignant neoplasm of breast (principal)
CPT/HCPCS: 77063; 77067

== ENCOUNTER 2023-11-12 13:20 | Outpatient (CLI) | payer MEDICARE, BC, SELFPAY ==
--- NOTE | 2023-11-12 13:00 | DI.RAD_ITS ---
Exam(s) XR SHOULDER RT COMPLETE 2+V EXAM: XR SHOULDER RT COMPLETE 2+V CLINICAL HISTORY: RIGHT SHOULDER PAIN. TECHNIQUE: 2D digital imaging was performed of the right shoulder. Two images were obtained. Axill brook and Grashey views were obtained. COMPARISON: No exams were available for comparison FINDINGS: BONES: No acute fracture is present. No bony destructive lesion is seen. JOINTS: No dislocation present. The glenohumeral and acromioclavicular joints are well maintained. SOFT TISSUE: The visualized lungs are clear. IMPRESSION: No acute abnormality. DATA REPOSITORY: RADIATION DOSE DELIVERED:
== END 2023-11-12 13:21 | disposition home or self-care (01) ==
LOC: DIORS 13:21
PROVIDERS: PCP Family Medicine; Visit Provider Student in an Organized Health Care Education/Training Program
DX: M75.101 Unspecified rotator cuff tear or rupture of right shoulder, not specified as traumatic; W19.XXXA Unspecified fall, initial encounter; R20.2 Paresthesia of skin
CPT/HCPCS: 99213; 73030

== ENCOUNTER → 2023-11-15 09:15 | Outpatient (CLI) | payer MEDICARE, BC, SELFPAY ==
--- NOTE | 2023-11-15 09:00 | DI.MRI_ITS ---
Exam(s) MR UPPER JOINT RT WO EXAM: MR UPPER JOINT RT WO CLINICAL HISTORY: M75.101 unspecified rotator cuff tear or rupture, R SHOULDER PAIN. TECHNIQUE: Multiplanar multisequence MRI was performed. COMPARISON: Plain films 12 November 2023 FINDINGS: Exam is somewhat limited by motion. BONES: There is no fracture or contusion pattern. JOINTS:The acromioclavicular joint shows mild inferior spurring. The glenohumeral joint is normal. TENDONS: Supraspinatus: Some thickening and edema. Infraspinatus: Unremarkable. Subscapularis: Unremarkable. Teres Minor: Unremarkable. Biceps and [place]: Edema at the proximal biceps tendon. The proximal biceps tendon is not well seen. Partial to full-thickness tear is suspected. MUSCLES: Unremarkable. GLENOID LABRUM: Unremarkable on this noncontrast examination. SOFT TISSUES: Unremarkable. OTHER: Subacromial and subdeltoid bursae shows a small amount of fluid. Small amount of fluid in the subcoracoid bursa. . IMPRESSION: Proximal biceps tendon is not well seen. Partial to full-thickness tear is suspected. Supraspinatus tendinosis. DATA REPOSITORY:
== END ==
PROVIDERS: PCP Family Medicine; Visit Provider Student in an Organized Health Care Education/Training Program
DX: M75.111 Incomplete rotator cuff tear or rupture of right shoulder, not specified as traumatic (principal)
CPT/HCPCS: 73221

== ENCOUNTER → 2023-12-04 14:07 | Outpatient (BNVA) | payer MEDICARE, BC, SELFPAY | PROVIDERS: PCP Family Medicine; Referring Provider Family Medicine; Visit Provider Student in an Organized Health Care Education/Training Program | DX: S46.211D Strain of muscle, fascia and tendon of other parts of biceps, right arm, subsequent encounter (principal); X58.XXXD Exposure to other specified factors, subsequent encounter; M67.441 Ganglion, right hand | CPT/HCPCS: 99213 ==

== ENCOUNTER → 2023-12-23 15:23 | Outpatient (CLI) | payer MEDICARE, BC, SELFPAY ==
--- NOTE | 2023-12-23 15:10 | DI.RAD_ITS ---
Exam(s) XR CHEST 2V PA LATERAL EXAM: XR CHEST 2V PA LATERAL CLINICAL HISTORY: COUGH R05.9 FOR 12 WEEKS, R/O INFILTRATE TECHNIQUE: 2D digital imaging was performed of the chest. Two images were obtained. PA and lateral views were obtained. COMPARISON: CR XR RIBS RT W PA LAT CHEST from 12/30/2020 CR,XR XR PORTABLE CHEST AP from 09/22/2022 FINDINGS: MEDIASTINUM: Normal. HEART: Normal. PULMONARY VASCULATURE: Normal. LUNGS: Clear. PLEURAL SPACE: No pleural effusion or pneumothorax. BONE:Within normal limits for the patient's age. There is a stable T5 compression fracture deformity . OTHER FINDINGS:Normal. IMPRESSION: No acute pulmonary findings. DATA REPOSITORY: RADIATION DOSE DELIVERED:
== END ==
PROVIDERS: PCP Family Medicine; Visit Provider Physician Assistant
DX: R05.9 Cough, unspecified (principal)
CPT/HCPCS: 71046

== ENCOUNTER 2023-12-25 16:16 | Outpatient (REF) | payer MEDICARE, BC, SELFPAY ==
[2023-12-25 20:54] LABS: HCT 42.2 % (36.0-46.0); HGB 13.5 g/dL (11.2-15.7); MCH 28.7 pg (27.0-33.0); MCV 90 fL (80-95); MPV 9.6 fL (8.0-11.0); Platelet Count 345 10^3/uL (130-400); RDW 14.8 % (11.7-14.6); RDW-SD 49.1 fL
[2023-12-25 21:17] LABS: ALT 37 U/L (14-59); AST 29 U/L (15-37); Alkaline Phosphatase 92 U/L (46-116); Anion Gap 8.8 mmol/L (3-11); BUN 16 mg/dL (7-18); Bilirubin, Total 0.4 mg/dL (0.2-1.0); CO2 29.2 mmol/L (21.0-32.0); CREATININE 0.6 mg/dL (0.55-1.02); Calcium 9.2 mg/dL (8.5-10.1); Chloride 105 mmol/L (98-107); Glucose 84 mg/dL (74-106); Potassium 4.2 mmol/L (3.5-5.1); Sodium 143 mmol/L (136-145); TSH (W/Ref FT4) 1.01 uIU/mL (0.36-3.74); Total Protein 7.1 g/dL (6.4-8.2)
== END 2023-12-25 16:17 | disposition home or self-care (01) ==
LOC: NCHCN 16:16
PROVIDERS: PCP Family Medicine; Visit Provider Nurse Practitioner Family
DX: R53.83 Other fatigue (principal)
CPT/HCPCS: 80053; 85027; 84443

== ENCOUNTER 2024-01-20 08:57 | Emergency (ER) | payer MEDICARE, BC, SELFPAY ==
[2024-01-20] VITALS (7 sets, daily range): BP systolic 105–146; BP diastolic 49–71; PULSE 59–88; RESP 15–22; TEMP 37; O2SAT 96–99
--- NOTE | 2024-01-20 09:00 | RT.EKG_ITS ---
APPROVED REPORT Exam: Resting ECG Reason for Exam: chest pain Patient Location: E HR:73 bpm ECG Measurements Heart Rate 73 AXIS MA 169 P -8 QRSd 105 QRS 50 QT 405 T 31 QTc 445 Conclusion Sinus rhythm...normal P axis, V-rate 60- 99
--- NOTE | 2024-01-20 09:10 | ED.GENADUL_ITS ---
Discharge Plan Disposition Patient Disposition: Home Condition: Stable Discharge Details Clinical Impression: Chest pain Primary Care Provider: Can Rojo ED Provider: Alex Galvez Home Meds and New Rx's Prescriptions: Continued multivitamin [Daily Multi-Vitamin] 1 EACH tablet 1 tab PO DAILY Tumeric 1 cap PO DAILY ibuprofen 200 MG tablet 400 mg PO PRN PRN biotin 500 mcg Capsule 500 mcg PO DAILY Discharge Instructions Additional Instructions: Your blood work and CAT scan did not show any concerning findings at this time Follow-up with your primary care provider within 1 week If you feel more ill, have severe worsening pain or difficulty breathing return to the emergency department for reevaluation HPI General Mode of arrival: ambulatory . Date/Time Provider Initiated Documentation: 01/20/24 08:58 . Limitations to Documentation: no limitations . Information obtained by: patient . History of Present Illness 68 year old F presents to the emergency department with the chief complaint of chest pain, described as moderate, Quality is described as sharp, and is localized to the chest. Patient reports no radiation. Patient started experiencing this day(s) (1) and it has been constant. No relieving factors improve symptom(s), No exacerbating factors reported . Patient notes denies fever/chills, shortness of breath and syncope. Patient did receive the following treatments prior to arrival, none Related Data Home Medications Medication Instructions Recorded Confirmed Tumeric 1 cap PO DAILY 09/14/16 12/04/23 multivitamin (Daily Multi-Vitamin 1 tab PO DAILY 09/14/16 12/04/23 tablet) ibuprofen 200 mg tablet 400 mg PO PRN PRN 05/01/17 12/04/23 biotin 500 mcg capsule 500 mcg PO DAILY 09/22/22 12/04/23 Allergies Allergy/AdvReac Type Severity Reaction Status Date / Time No Known Allergies Allergy Unverified 12/04/23 14:15 General Stated Complaint: Chest Pain PARKER: 3 Review of Systems All systems reviewed & are unremarkable except as noted in HPI and below Constitutional Constitutional: Denies chills, Denies fever(s) and Denies weakness Eyes Eyes: Denies loss of vision Cardiovascular Cardiovascular: Reports chest pain and Denies dyspnea Respiratory Respiratory: Denies cough and Denies dyspnea Gastrointestinal Gastrointestinal: Denies abdominal pain, Denies nausea and Denies vomiting Neurologic Neurologic: Denies loss of vision and Denies weakness Exam Const General: no acute distress Orientation: alert HENKS Head: normal to inspection Ears: external ears normal General nose exam: external nose normal Mouth: moist mucous membranes Eyes General: appearance normal, both eyes and all related structures Neck Neck: normal visual inspection Resp Effort & Inspection: normal respiratory effort and able to speak in complete sentences Auscultation: clear to auscultation bilaterally Cardio Jugular venous pressure: no JVD Rate: regular rate Heart Sounds: no murmurs GI Palpation: soft and nontender Skin General skin exam: no rashes or lesions noted Neuro General: patient alert and patient oriented x3 Extrem General: normal to inspection Psych Mental Status: mental status grossly normal Course Vital Signs Vital signs: Vital Signs Temperature 37.0 C 01/20/24 09:02 Pulse 88 01/20/24 09:02 Respiratory Rate 16 01/20/24 09:02 Blood Pressure 146/71 H 01/20/24 09:02 Pulse Oximetry 99 01/20/24 09:02 Temperature 37.0 C 01/20/24 09:02 Temperature Source Tympanic 01/20/24 09:02 Pulse 88 01/20/24 09:02 Respiratory Rate 16 01/20/24 09:02 Blood Pressure 146/71 H 01/20/24 09:02 Blood Pressure Position Sitting 01/20/24 09:02 Pulse Oximetry 99 01/20/24 09:02 Oxygen Delivery Method Room Air 01/20/24 09:02 Oxygen Flow Rate 0 01/20/24 09:02 Medical Decision Making 68-year-old female with no significant chronic medical problems comes in with months of bilateral arm soreness, and 1 day of anterior sharp chest pain. Denies any fevers, difficulty breathing, headaches, unilateral weakness, speech changes speech or vision. She is ambulatory on arrival and is oriented x 4 in no distress. She has no focal deficits cranial nerves II through XII are intact, NIH of 0. She has clear lungs, no JVD, soft abdomen, no leg swelling or calf tenderness. Unclear etiology of her symptoms will obtain EKG and troponin, CBC, CMP, CPK and obtain CTA of the chest to evaluate for possible dissection. She has no hypoxia or pleuritic chest pain to suggest PE. No findings on exam and her weakness in her arms or bilaterally so doubt CVA. Patient stable, asymptomatic now. Labs unremarkable other than a glucose of 50, patient is tolerating p.o.'s do not feel any IV dextrose indicated. She says she has any much this morning. She is not lightheaded or feeling weak. CTA negative, troponin negative given over 3 hours of symptoms do not feel delta indicated. She will follow-up with her PCP and return precautions given Differential Diagnosis Differential Diagnosis: Chest wall pain, neuropathy, dissection Medical Records Medical records reviewed: Yes I reviewed the patient's medical records. Imaging Data Radiologic Study: Attestation: I personally reviewed and interpreted this imaging study as follows: Imaging: CT Scan Radiologist's impression: No acute findings Lab Data Lab results reviewed: Yes I reviewed the patient's lab results. ECG Data Attestation: I personally reviewed and interpreted this ECG (s) as follows: Prior ECG tracings: available for review Interpretation: Sinus rhythm, rate of 73, CA 169, no STEMI Quality:SDOH Health Related Social Needs: No Data to Display PFSH All Active Problems (Updated 01/20/24 @ 10:17 by Alex Galvez MD) Chest pain (Acute) Digital mucous cyst of finger of right hand (Acute) Rupture of right proximal biceps tendon (Acute ~10/2023) Mitral valve prolapse (Acute) Bilateral sensorineural hearing loss (Acute) Tinnitus (Acute) Retracted tympanic membrane (Acute) COVID-19 (Acute) Medical History (Updated 01/20/24 @ 10:17 by Alex Galvez MD) Shingles Granuloma annulare Rosacea Arthritis of both knees Bilateral knee pain Preventative health care Skin lesion Anterior chest wall pain Wrist pain, left Ankle pain, right Malaise and fatigue Menopausal and postmenopausal disorder Right knee pain Right thigh pain Family history of colon cancer Dizziness Fatigue Pleuritic chest pain Dyspepsia Neck pain Leg pain, right Pain in left hand Bronchitis Sinus congestion Sinusitis Chest pain on breathing Surgical History (Updated 11/08/23 @ 10:54 by Lisa Talavera RN) Left humeral fracture resulting in 2 surgeries History of tonsillectomy and adenoidectomy History of bilateral cataract extraction Social History Smoking/Tobacco Use Status: Never Smoking risk assessment performed?: Yes Alcohol Intake: current Alcohol Intake frequency: holidays/special occasions only Drug use: Never Substance use type: does not use Do you feel safe at home: Yes Do you feel safe in your relationship?: Yes
--- NOTE | 2024-01-20 09:15 | DI.CT_ITS ---
Exam(s) CT THORAX CTA EXAM: CT THORAX CTA CLINICAL HISTORY: ?dissection. TECHNIQUE: Imaging Protocol: CT angiography of the chest was performed using pulmonary embolus chante col. Multi planar reconstructions were performed. CONTRAST MATERIAL: Intravenous: Omnipaque 350 Contrast volume: 100 cc COMPARISON: CT CT CHEST PE CTA from 09/22/2022 FINDINGS: CHEST: PULMONARY ARTERIES: There are no intraluminal filling defects to suggest acute pulmonary emboli. THORACIC AORTA: Normal diameter. No evidence of dissection. LUNGS: There are no infiltrates nor evidence of pulmonary infarction.. There are no pleural effusions . No findings in trachea and mainstem bronchi. MEDIASTINUM: There is no hilar nor mediastinal adenopathy. Visualized thyroid unremarkable. CARDIAC: Heart size is upper normal. There is no pericardial effusion.Caliber of the thoracic aorta is within normal limits. No dissection there is no significant shift of the interventricular septum. PARTIALLY VISUALIZED UPPERMOST ABDOMEN: No obvious findings OSSEOUS: There is a compression fracture of T4 with approximately 60 percent height loss. However, t his is unchanged from 09/22/2022. Also unchanged from 2017. No new fractures evident. No osseous l esions.. IMPRESSION: 1. No evidence of acute pulmonary emboli. No evidence of pulmonary infarction.No pleural effusions. 2. No evidence of aortic dissection nor pericardial effusion. Heart size normal. 3. Stable T4 compression fracture. No new fractures evident Report called by myself to ER physician RADIATION DOSE DELIVERED: 392.88mGy.cm Total DLP DATA REPOSITORY: All CT scans at this facility are submitted to the National Radiology Data Registry (NRDR) Dose Index Registry (DIR) with the [employer] (ACR). RADIATION OPTIMIZATION: All CT scans at this facility use at least one of these dose optimization te chniques: automated exposure control; mA and/or kV adjustment per patient size (includes targeted exa ms where dose is matched to clinical indication); or iterative reconstruction.
[2024-01-20 09:36] LABS: Abs Immature Grans 0.02 10^3/uL (0.0-0.06); Absolute Basophil Count 0.03 10^3/uL (0.0-0.2); Absolute Eosinophil Count 0.24 10^3/uL (0.0-0.7); Absolute Lymphocyte Count 1.98 10^3/uL (1.2-3.4); Absolute Monocyte Count 0.26 10^3/uL (0.1-0.8); Absolute Neutrophil Count 2.45 10^3/uL (1.2-6.7); Basophils % 0.6 %; Eosinophils % 4.8 %; HCT 43.2 % (36.0-46.0); HGB 13.6 g/dL (11.2-15.7); Immature Grans % 0.4 %; Lymphocytes % 39.8 %; MCH 28.5 pg (27.0-33.0); MCHC 31.5 % (32.0-36.0); MCV 91 fL (80-95); MPV 8.8 fL (8.0-11.0); Monocytes % 5.2 %; Neutrophils % 49.2 %; Platelet Count 304 10^3/uL (130-400); RBC 4.77 10^6/uL (3.93-5.22); RDW 14.6 % (11.7-14.6); RDW-SD 48.5 fL; WBC 4.98 10^3/uL (4.4-10.8)
[2024-01-20] MEDS: Normal Saline - Diluent 50 ML VIAL IJ (09:39)
[2024-01-20] MEDS: Omnipaque 350 MG/ML 500 ML BTL-Imaging package 100 ML IJ (09:40)
[2024-01-20 09:59] LABS: ALT 28 U/L (14-59); AST 23 U/L (15-37); Albumin 3.7 g/dL (3.4-5.0); Alkaline Phosphatase 86 U/L (46-116); Anion Gap 7.2 mmol/L (3-11); BUN 15 mg/dL (7-18); Bilirubin, Total 0.5 mg/dL (0.2-1.0); CO2 30.8 mmol/L (21.0-32.0); CREATININE 0.7 mg/dL (0.55-1.02); Calcium 8.9 mg/dL (8.5-10.1); Chloride 108 mmol/L (98-107); Creatine Kinase 55 U/L (26-192); Estimated GFR 93.56 (mL/min/1.73m2); Glucose 51 mg/dL (74-106); Magnesium 1.7 mg/dL (1.8-2.4); NT-proBNP 84 pg/mL (<300); Potassium 3.6 mmol/L (3.5-5.1); Sodium 146 mmol/L (136-145); Total Protein 7.1 g/dL (6.4-8.2); Troponin I < 50 ng/L (< or =60)
== END 2024-01-20 10:33 | disposition home or self-care (01) ==
PROVIDERS: Emergency Provider Emergency Medicine; PCP Family Medicine
DX: R07.9 Chest pain, unspecified (principal); R20.2 Paresthesia of skin; R53.1 Weakness; Z91.81 History of falling
CPT/HCPCS: 36415; 71275; 80053; 82550; 93005; 99285; 83735; 83880; 84484; 85025; 93010; 99283

== ENCOUNTER 2024-02-10 16:02 | Outpatient (CLI) | payer MEDICARE, BC, SELFPAY ==
--- NOTE | 2024-02-10 14:15 | DI.RAD_ITS ---
Exam(s) XR HAND RT COMPLETE EXAM: XR HAND RT COMPLETE CLINICAL HISTORY: RRF CYST. TECHNIQUE: 2D digital imaging was performed. COMPARISON: No exams were available for comparison FINDINGS: 3 views No evidence of fracture or dislocation. Bone density is age-appropriate. No osseous lesions nor ero sions. There is a 1 mm calcific density adjacent to the lateral aspect of the DIP joint of the 2nd-i ndex finger. No obvious degenerative changes in the DIP joints. No erosions. No osseous lesions. IMPRESSION: Minimal findings. DATA REPOSITORY: RADIATION DOSE DELIVERED:
== END 2024-02-10 16:03 | disposition home or self-care (01) ==
LOC: DIORS 16:02
PROVIDERS: PCP Family Medicine; Referring Provider Family Medicine; Visit Provider Student in an Organized Health Care Education/Training Program
DX: R22.31 Localized swelling, mass and lump, right upper limb
CPT/HCPCS: 99213; 73130

== ENCOUNTER 2024-04-02 13:00 | Outpatient (REF) | payer MEDICARE, BC, SELFPAY ==
[2024-04-02 14:23] LABS: Abs Immature Grans 0.01 10^3/uL (0.0-0.06); Absolute Basophil Count 0.04 10^3/uL (0.0-0.2); Absolute Eosinophil Count 0.16 10^3/uL (0.0-0.7); Absolute Lymphocyte Count 2.83 10^3/uL (1.2-3.4); Absolute Monocyte Count 0.33 10^3/uL (0.1-0.8); Basophils % 0.7 %; Eosinophils % 2.7 %; HCT 40.6 % (36.0-46.0); HGB 13.4 g/dL (11.2-15.7); Immature Grans % 0.2 %; Lymphocytes % 48.2 %; MCH 28.7 pg (27.0-33.0); MCV 87 fL (80-95); MPV 9.4 fL (8.0-11.0); Monocytes % 5.6 %; Neutrophils % 42.6 %; Platelet Count 287 10^3/uL (130-400); RBC 4.67 10^6/uL (3.93-5.22); RDW 14.6 % (11.7-14.6); RDW-SD 46.6 fL; WBC 5.87 10^3/uL (4.4-10.8)
[2024-04-02 14:46] LABS: ALT 26 U/L (14-59); AST 24 U/L (15-37); Albumin 3.7 g/dL (3.4-5.0); Alkaline Phosphatase 87 U/L (46-116); Anion Gap 10.4 mmol/L (3-11); BUN 16 mg/dL (7-18); Bilirubin, Total 0.41 mg/dL (0.2-1.0); CO2 25.6 mmol/L (21.0-32.0); CREATININE 0.6 mg/dL (0.55-1.02); Calcium 8.8 mg/dL (8.5-10.1); Chloride 105 mmol/L (98-107); Glucose 91 mg/dL (74-106); Potassium 4.3 mmol/L (3.5-5.1); Sodium 141 mmol/L (136-145); Total Protein 6.5 g/dL (6.4-8.2)
[2024-04-03 10:43] LABS: Lyme Ab w Rflx to Lyme Confirm Negative (Negative)
[2024-04-05 00:41] LABS: Anaplasma phagocytophilum Negative (Negative); B. miyamotoi PCR Negative (Negative); Babesia divergens/MO-1 Negative (Negative); Babesia duncani Negative (Negative); Babesia microti Negative (Negative); Ehrlichia chaffeensis Negative (Negative); Ehrlichia ewingii/canis Negative (Negative); Ehrlichia muris eauclairensis Negative (Negative)
== END 2024-04-02 13:01 | disposition home or self-care (01) ==
LOC: LBN 13:00
PROVIDERS: PCP Family Medicine; Visit Provider Physician Assistant Medical
DX: M25.50 Pain in unspecified joint (principal); Z11.8 Encounter for screening for other infectious and parasitic diseases
CPT/HCPCS: 80053; 87798; 85025; 86618

== ENCOUNTER → 2024-04-02 15:19 | Outpatient (CLI) | payer MEDICARE, BC, SELFPAY ==
--- NOTE | 2024-04-02 13:25 | DI.RAD_ITS ---
Exam(s) XR KNEE RT 3V AP,LAT,ELIS EXAM: XR KNEE RT 3V AP,LAT,ELIS CLINICAL HISTORY: Pain in rt knee, M25.561. TECHNIQUE: 2D digital imaging was performed. Three views. COMPARISON: CR LEFT KNEE 4+ VIEWS from 09/04/2011 FINDINGS: BONES: No acute fracture is present. No bony destructive lesion is seen. Enthesophyte superior pole of the patella. JOINTS: Moderate to severe narrowing of the lateral femoral tibial joint space. Periarticular spurri ng throughout. A small joint effusion is seen. SOFT TISSUE: Normal. IMPRESSION: degenerative changes, greatest of the lateral femoral tibial joint. DATA REPOSITORY: RADIATION DOSE DELIVERED:
== END ==
PROVIDERS: PCP Family Medicine; Visit Provider Physician Assistant Medical
DX: M25.561 Pain in right knee (principal); M17.11 Unilateral primary osteoarthritis, right knee
CPT/HCPCS: 73562

== ENCOUNTER 2024-04-30 05:19 | Outpatient (CLI) | payer MEDICARE, BC, SELFPAY ==
[2024-04-30] MEDS: Inhaler, Assist Device 1 EACH MC (09:27)
[2024-04-30] MEDS: Levalbuterol HFA 15 GM INH 4 PUFF IH (09:27)
--- NOTE | 2024-04-30 12:46 | W.PFT ---
Date of service: 04/30/24 Time of Service: 08:00 Pulmonary Function Test Result Requesting Provider Can Rojo Indications: Chronic cough Impression Spirometry shows normal FEV1/FVC 89% normal FEV1 108%. Normal lung volumes with no air trapping. Normal diffusion. Normal flow volume loops. Clinical Correlation therefore is recommended.
== END 2024-04-30 05:20 | disposition home or self-care (01) ==
PROVIDERS: PCP Family Medicine; Visit Provider Family Medicine
DX: R05.3 Chronic cough (principal)
CPT/HCPCS: 00123; 94060; 94726; 94729

== ENCOUNTER 2024-05-15 00:36 | Outpatient (CLI) | payer MEDICARE, BC, SELFPAY ==
--- NOTE | 2024-05-15 | DI.MRI_ITS ---
Exam(s) MR CERVICAL SPINE WO EXAM: MR CERVICAL SPINE WO CLINICAL HISTORY: MUSCLE WEAKNESS OF LIMB, M62.81, MUSCLE WEAKNESS GENERALIZED TECHNIQUE: Multiplanar multisequence MRI of the cervical spine was performed without intravenous con trast. FINDINGS: BONES: Vertebral body heights are maintained. Alignment is normal. Bone marrow signal intensity is wi thin normal limits. Facet degenerative changes noted throughout. CERVICAL CORD: Craniovertebral junction is unremarkable. The cervical cord is normal size and signal intensity. SOFT TISSUES: Unremarkable. C2-3: No disc herniation or bulge is identified. No evidence of neural foraminal narrowing. No signi ficant central canal stenosis. C3-4: No disc herniation or disc bulge is identified. Severe left and mild right neural foraminal n arrowing. No significant central canal stenosis. C4-5: Mild loss of disc height. Endplate osteophytes and mild concentric disc bulging. mild left an d moderate rightneural foraminal narrowing. No significant central canal stenosis. C5-6: Mild loss of disc height. Endplate osteophytes and mild disc bulging.Moderate left neural eric inal narrowing. No significant central canal stenosis. C6-7: Mild loss of disc height. Endplate osteophytes and mild disc bulging. Moderate left and mild r ight neural foraminal narrowing. No significant central canal stenosis. C7-T1: No disc herniation or bulge is identified. No evidence of neural foraminal narrowing. No signi ficant central canal stenosis. IMPRESSION: Degenerative disc changes and facet degenerative changes combine to produce bilateral neural foramina l narrowing. Findings are most severe on the left side at C3-4. No central canal stenosis or disc herniation at any level. DATA REPOSITORY:
--- NOTE | 2024-05-15 | DI.MRI_ITS ---
Exam(s) MR BRAIN WO EXAM: MR BRAIN WO CLINICAL HISTORY: MUSCLE WEAKNESS OF LIMB, M62.81, MUSCLE WEAKNESS GENERALIZED TECHNIQUE: Multiplanar multisequence MRI of the brain was performed. COMPARISON: CT HEAD WITHOUT CONTRAST from 11/14/2014 FINDINGS: VENTRICLES AND EXTRA AXIAL SPACES: Normal in size and morphology for the patient's age. MIDLINE SHIFT: None. CEREBRAL PARENCHYMA: No focus of restricted diffusion to suggest acute infarct. No space-occupying le kevin identified. No white matter lesions. HEMORRHAGE: None. BRAINSTEM/CEREBELLUM: Normal. VISUALIZED PARANASAL SINUSES/MASTOIDS: Few mucosal thickening at floors of the maxillary sinuses. Vasculature: Normal flow void. PITUITARY GLAND: Unremarkable. ORBITS: Unremarkable. IMPRESSION: Unremarkable MRI of the brain. DATA REPOSITORY:
== END 2024-05-15 00:56 ==
LOC: DI 00:36
PROVIDERS: PCP Family Medicine; Visit Provider Family Medicine
DX: M48.062 Spinal stenosis, lumbar region with neurogenic claudication (principal); M62.81 Muscle weakness (generalized)
CPT/HCPCS: 70551; 72141

== ENCOUNTER 2024-06-10 19:34 | Emergency (ER) | payer MEDICARE, BC, SELFPAY ==
[2024-06-10 19:38] VITALS: BP 140/85; PULSE 71; RESP 15; TEMP 36.1; O2SAT 95
[2024-06-10 19:43] VITALS: BP 140/85; PULSE 71; RESP 15; TEMP 36.1; O2SAT 95
--- NOTE | 2024-06-10 19:45 | DI.CT_ITS ---
Exam(s) CT ABDOMEN PELVIS W EXAM: CT ABDOMEN PELVIS W CLINICAL HISTORY: Abdominal Pain. TECHNIQUE: Imaging Protocol: Axial computed tomography images with coronal and sagittal reformatted images were created and reviewed CONTRAST MATERIAL: Intravenous: Omnipaque-350 100cc Oral: None COMPARISON: CT CT CHEST PE CTA from 09/22/[address] THORAX CTA from 01/20/2024 FINDINGS: VISUALIZED LUNG BASES: No nodules nor pleural effusions evident. ABDOMEN: There is no ascites. LIVER: Small 5 mm benign cyst in the superior aspect of the right hepatic lobe noted, unchanged. Few other small even smaller cysts are also noted in the liver. No ominous hepatic lesions evident. No dilated intrahepatic ducts. GALLBLADDER/BILIARY: Some enhancement of the gallbladder wall is noted. No obvious gallstones nor ga llbladder wall edema nor pericholecystic fluid. CBD is not dilated. PANCREAS: No evidence of pancreatic mass nor dilatation of the pancreatic duct. SPLEEN: Spleen is not enlarged. No obvious intrasplenic lesions. Splenic and portal veins are paten t. ADRENALS: There are no significant adrenal masses. KIDNEYS:No cysts evident. No solid renal masses. No calculi nor hydronephrosis.. ABDOMINAL AORTA: Abdominal aorta is not enlarged. LYMPH NODES:There is no retroperitoneal nor paraaortic adenopathy. ABDOMINAL WALL: No evidence of significant anterior abdominal wall nor inguinal hernia. GI: There is no evidence of bowel obstruction, free air, nor abscess. PELVIS: GI: No evidence of appendicitis. There is a well-defined cyst in the right lower quadrant adjacent t o the unremarkable appearing appendix and anterior to the the psoas muscle, this measuring 3.6 cm wid e by 3 cm AP by 4.7 cm craniocaudal. The adjacent normal appearing appendix exhibits diameter of 6-7 mm. The adjacent terminal ileum also appears unremarkable. There are sigmoid diverticuli. No obvi ous acute diverticulitis evident. There are also non complicated diverticuli in the descending-left colon. LYMPH NODES: There is no intrapelvic nor inguinal adenopathy. REPRODUCTIVE: Calcified uterine fibroids are noted. No abnormal adnexal masses nor free fluid in the pelvis. URINARY BLADDER: No calculi nor obvious masses evident OSSEOUS: No fractures and no significant osseous lesions. IMPRESSION: 1. There is a 4.7 x 3.6 x 3.0 cm well-defined benign-appearing cystic lesion in the right lower quadr ant adjacent to the appendix, terminal ileum, and right psoas muscle. 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 2. Diverticulosis in left side of the colon without evidence of acute diverticulitis. No evidence of appendicitis. 3. Other findings as above. First read by [facility]. RADIATION DOSE DELIVERED: 615.98mGy.cm Total DLP DATA REPOSITORY: All CT scans at this facility are submitted to the National Radiology Data Registry (NRDR) Dose Index Registry (DIR) with the [employer] (ACR). RADIATION OPTIMIZATION: All CT scans at this facility use at least one of these dose optimization te chniques: automated exposure control; mA and/or kV adjustment per patient size (includes targeted exa ms where dose is matched to clinical indication); or iterative reconstruction.
[2024-06-10 20:01] LABS: Bilirubin Negative (Negative); Blood Negative (Negative); Clarity Clear (Clear); Glucose Negative (Negative); Ketones Negative (Negative); Leukocyte Esterase Negative (Negative); Nitrite Negative (Negative); Specific Gravity >= 1.030 (1.005-1.025); Urobilinogen 0.2 mg/dL (Up to 0.2); pH 5.5 (5-8)
[2024-06-10 20:09] LABS: Abs Immature Grans 0.01 10^3/uL (0.0-0.06); Absolute Basophil Count 0.04 10^3/uL (0.0-0.2); Absolute Eosinophil Count 0.22 10^3/uL (0.0-0.7); Absolute Lymphocyte Count 2.94 10^3/uL (1.2-3.4); Absolute Monocyte Count 0.45 10^3/uL (0.1-0.8); Absolute Neutrophil Count 3.63 10^3/uL (1.2-6.7); Basophils % 0.5 %; HGB 13.9 g/dL (11.2-15.7); Immature Grans % 0.1 %; Lymphocytes % 40.3 %; MCHC 32.3 % (32.0-36.0); MCV 90 fL (80-95); MPV 8.8 fL (8.0-11.0); Monocytes % 6.2 %; Neutrophils % 49.9 %; Platelet Count 295 10^3/uL (130-400); RDW-SD 49.9 fL; WBC 7.29 10^3/uL (4.4-10.8)
--- NOTE | 2024-06-10 20:11 | ED.GENADUL_ITS ---
Discharge Plan Disposition Patient Disposition: Home Condition: Stable Discharge Details Clinical Impression: Abdominal pain, Mesenteric cyst Primary Care Provider: Can Rojo ED Provider: Eduarda Presley Home Meds and New Rx's Prescriptions: No Action multivitamin [Daily Multi-Vitamin] 1 EACH tablet 1 tab PO DAILY Tumeric 1 cap PO DAILY ibuprofen 200 MG tablet 400 mg PO PRN PRN biotin 500 mcg Capsule 500 mcg PO DAILY Discharge Instructions Instructions: Abdominal Pain, Adult ED Additional Instructions: At this time CT shows a 4.3 cm mesenteric cyst in the right lower quadrant of your abdomen please follow-up with your PCP regarding this for any further imaging may need to be done. No evidence for obstruction, you do have some diverticulosis no evidence of diverticulitis at this time. Please have practice a clear liquid diet for the next 2 to 3 days. Advance as tolerated with a bland diet stay away from anything fried fatty spicy or dairy. Follow up with primary care provider in 3-5 days. Return to ED sooner if any worsening or concerns. Please take Tylenol or Ibuprofen with food every 4-6 hours as needed for pain and swelling. Thank you for allowing us to care for you today. Referrals: Can Rojo MD [Primary Care Provider] - 5 days HPI General Mode of arrival: ambulatory . Date/Time Provider Initiated Documentation: 06/10/24 19:35 . Limitations to Documentation: no limitations . Information obtained by: patient, RN notes reviewed and old records reviewed . HPI Narrative: 77-year-old female presents to the ER with a chief complaint of lower abdominal pain that she describes as burning which began 2 hours prior to arrival. Patient reports sudden onset and worsening radiating to her lower back. She denies any nausea vomiting diarrhea. She did have a bowel movement today which she reports was smaller than normal. No history of abdominal surgeries. Denies any problems urinating or burning with urination. Related Data Home Medications ?Medication ?Instructions ?Recorded ?Confirmed Tumeric 1 cap PO DAILY 09/14/16 06/10/24 multivitamin (Daily Multi-Vitamin 1 tab PO DAILY 09/14/16 06/10/24 tablet) ibuprofen 200 mg tablet 400 mg PO PRN PRN 05/01/17 06/10/24 biotin 500 mcg capsule 500 mcg PO DAILY 09/22/22 06/10/24 Allergies Allergy/AdvReac Type Severity Reaction Status Date / Time No Known Allergies Allergy Unverified 06/10/24 19:46 General Stated Complaint: Abd Prob PARKER: 3 Review of Systems All systems reviewed & are unremarkable except as noted in HPI and below Gastrointestinal Gastrointestinal: Reports abdominal pain Exam Narrative Exam Narrative: Constitutional: Alert and oriented x3. Appears stated age. Normal body habitus. Head: Normocephalic, no trauma. Eyes: Pupils PERRL, Red reflex noted, EOM's intact. Eyelids symmetrical without lesions, discharge, or swelling. ENT: Bilateral TM's WNL, External ear normal to inspection, no mastoid TTP, swelling, or erythema, Nasal turbinates WNL, no nasal discharge. Normal dentition, Posterior pharynx WNL, no exudate. Chest: RRR, Normal S1, S2, distal pulses intact. Resp: Lungs clear to auscultation bilaterally, no wheezes, rales, or rhonchi. Abdomen: Soft, non-distended, Normoactive bowel sounds all 4 quads. Musculoskeletal: Normal gait, Moves all 4 extremities without difficulty. Skin: No suspicious rashes or lesions. Capillary refill less than 2 sec. Neurologic: Cranial nerves II-XII intact. Alert and oriented x 3. Motor: No deficits noted. Sensory: Intact bilaterally all 4 extremities. Hematologic/Lymphatic: No ecchymosis, no lymphadenopathy. Course Vital Signs Vital signs: Vital Signs Temperature 36.1 C L 06/10/24 19:38 Pulse 71 06/10/24 19:38 Respiratory Rate 15 06/10/24 19:38 Blood Pressure 140/85 06/10/24 19:38 Pulse Oximetry 95 06/10/24 19:38 Temperature 36.1 C L 06/10/24 19:43 Pulse 71 06/10/24 19:43 Respiratory Rate 15 06/10/24 19:43 Respiratory Effort Normal 06/10/24 19:43 Blood Pressure 140/85 06/10/24 19:43 Blood Pressure Position Sitting 06/10/24 19:43 Pulse Oximetry 95 06/10/24 19:43 Oxygen Delivery Method Room Air 06/10/24 19:43 Oxygen Flow Rate 0 06/10/24 19:38 Pain Level 4 06/10/24 19:43 Lab/Test Results Lab/Test Results: Laboratory Tests Range/Units 06/10/24 06/10/24 19:39 20:03 WBC (4.4-10.8) 10^3/uL 7.29 RBC (3.93-5.22) 10^6/uL 4.80 Hgb (11.2-15.7) g/dL 13.9 Hct (36.0-46.0) % 43.0 MCV (80-95) fL 90 MCH (27.0-33.0) pg 29.0 MCHC (32.0-36.0) % 32.3 RDW (11.7-14.6) % 15.0 H Plt Count (130-400) 10^3/uL 295 MPV (8.0-11.0) fL 8.8 Immature Gran % % 0.1 Neutrophils % % 49.9 Lymphocytes % % 40.3 Monocytes % % 6.2 Eosinophils % % 3.0 Basophils % % 0.5 Nucleated RBC % (0.0-0.3) % 0.0 Absolute Neutrophils (1.2-6.7) 10^3/uL 3.63 Absolute Lymphocytes (1.2-3.4) 10^3/uL 2.94 Absolute Monocytes (0.1-0.8) 10^3/uL 0.45 Absolute Eosinophils (0.0-0.7) 10^3/uL 0.22 Absolute Basophils (0.0-0.2) 10^3/uL 0.04 Urine Color (Yellow) Yellow Urine Clarity (Clear) Clear Urine pH (5-8) 5.5 Ur Specific Left Hand (1.005-1.025) >= 1.030 H Urine Protein (Neg-Trace) mg/dL Negative Urine Ketones (Negative) mg/dL Negative Urine Blood (Negative) Negative Urine Nitrite (Negative) Negative Urine Bilirubin (Negative) Negative Urine Urobilinogen (Up to 0.2) mg/dL 0.2 Ur Leukocyte Esterase (Negative) Negative Urine Glucose (Negative) mg/dL Negative Medical Decision Making 77-year-old female presents to the ER with a chief complaint of lower abdominal pain that she describes as burning which began 2 hours prior to arrival. Patient reports sudden onset and worsening radiating to her lower back. She denies any nausea vomiting diarrhea. She did have a bowel movement today which she reports was smaller than normal. No history of abdominal surgeries. Denies any problems urinating or burning with urination. Workup ordered including CBC CMP urinalysis, CT abdomen pelvis with contrast. Differential diagnosis includes but not limited to UTI, pyelonephritis, diverticulosis diverticulitis, gastroenteritis. CT shows a 4.3 cm cystic lesion in the right lower quadrant which could represent mesenteric cyst, no evidence of appendicitis. Some diverticulosis but no diverticulitis. Discussed CT results with patient and family verbalized understanding. Patient to be discharged with follow-up with PCP. At this time patient's abdominal pain has resolved. Discussed bland diet with clear liquids for the next 2 to 3 days. This text was generated using [employer] system, please disregard any oddities of phrase or misspellings. Medical Records Medical records reviewed: Yes I reviewed the patient's medical records. Imaging Data Radiologic Study: Imaging: CT Scan Radiologist's impression: FINDINGS: Lungs: Mild bronchiectasis with bibasilar atelectasis. Diaphragm: Small hiatal hernia with diffuse distal esophageal wall thickening, esophagitis cannot be excluded, correlate clinically. Liver: Small low attenuating lesions w ithin the liver the largest in the dome measuring 7 mm may represent small hemangioma or small cyst. Gallbladder and biliary ducts: Contracted gallbladder. Pancreas: Normal. No ductal dilation. Spleen: Normal. No splenomegaly. Adrenal glands: Normal. No mass. Kidneys and ureters: Normal. No hydronephrosis. Stomach and bowel: Scattered diverticuli without evidence of diverticulitis. Fecalization of the small bowel without evidence of obstruction or mass. Appendix: No evidence of appendicitis. Intraperitoneal space: 4.3 cm cystic lesion in the right lower quadrant, this could represent a mesenteric cyst. Vasculature: Unremarkable. No abdominal aortic aneurysm. IMPRESSION: 1. Mild bronchiectasis with bibasilar atelectasis. 2. 4.3 cm cystic lesion in the right lower quadrant, this could represent a mesenteric cyst. 3. Other noncritical findings as described above. Thank you for allowing us to participate in the care of your patient. Dictated and Authenticated by: Ailyn Nava MD Lab Data Lab results reviewed: Yes I reviewed the patient's lab results. Labs: Laboratory Tests Range/Units 06/10/24 06/10/24 06/10/24 19:39 20:03 20:17 WBC (4.4-10.8) 10^3/uL 7.29 RBC (3.93-5.22) 10^6/uL 4.80 Hgb (11.2-15.7) g/dL 13.9 Hct (36.0-46.0) % 43.0 MCV (80-95) fL 90 MCH (27.0-33.0) pg 29.0 MCHC (32.0-36.0) % 32.3 RDW (11.7-14.6) % 15.0 H Plt Count (130-400) 10^3/uL 295 MPV (8.0-11.0) fL 8.8 Immature Gran % % 0.1 Neutrophils % % 49.9 Lymphocytes % % 40.3 Monocytes % % 6.2 Eosinophils % % 3.0 Basophils % % 0.5 Nucleated RBC % (0.0-0.3) % 0.0 Absolute Neutrophils (1.2-6.7) 10^3/uL 3.63 Absolute Lymphocytes (1.2-3.4) 10^3/uL 2.94 Absolute Monocytes (0.1-0.8) 10^3/uL 0.45 Absolute Eosinophils (0.0-0.7) 10^3/uL 0.22 Absolute Basophils (0.0-0.2) 10^3/uL 0.04 Sodium (136-145) mmol/L 146 H Potassium (3.5-5.1) mmol/L 3.6 Chloride (98-107) mmol/L 107 Carbon Dioxide (21.0-32.0) mmol/L 30.7 Anion Gap (3-11) mmol/L 8.3 BUN (7-18) mg/dL 15 Creatinine (0.55-1.02) mg/dL 0.7 Est GFR (CKD-EPI 2020) (mL/min/1.73m2) 92.98 Glucose (74-106) mg/dL 81 Calcium (8.5-10.1) mg/dL 9.0 Magnesium (1.8-2.4) mg/dL 1.9 Total Bilirubin (0.2-1.0) mg/dL 0.30 AST (15-37) U/L 22 ALT (14-59) U/L 25 Alkaline Phosphatase (46-116) U/L 96 Troponin I (<or=51) ng/L < 4 Total Protein (6.4-8.2) g/dL 7.3 Albumin (3.4-5.0) g/dL 3.8 Lipase (16-77) U/L 46 Urine Color (Yellow) Yellow Urine Clarity (Clear) Clear Urine pH (5-8) 5.5 Ur Specific Left Hand (1.005-1.025) >= 1.030 H Urine Protein (Neg-Trace) mg/dL Negative Urine Ketones (Negative) mg/dL Negative Urine Blood (Negative) Negative Urine Nitrite (Negative) Negative Urine Bilirubin (Negative) Negative Urine Urobilinogen (Up to 0.2) mg/dL 0.2 Ur Leukocyte Esterase (Negative) Negative Urine Glucose (Negative) mg/dL Negative COVID-19 Source Nasopharynx SARS-CoV-2 (PCR) (Negative) Negative Influenza Type A (PCR) (Negative) Negative Influenza Type B (PCR) (Negative) Negative RSV (PCR) (Negative) Negative Quality:SDOH Health Related Social Needs: No Data to Display PFSH All Active Problems (Updated 06/10/24 @ 21:50 by Eduarda Presley NP) Mesenteric cyst (Acute) Abdominal pain (Acute) Finger mass, right (Acute) Rupture of right proximal biceps tendon (Acute ~10/2023) Mitral valve prolapse (Acute) Bilateral sensorineural hearing loss (Acute) Tinnitus (Acute) Retracted tympanic membrane (Acute) COVID-19 (Acute) Medical History Shingles Granuloma annulare Rosacea Arthritis of both knees Bilateral knee pain Preventative health care Skin lesion Anterior chest wall pain Wrist pain, left Ankle pain, right Malaise and fatigue Menopausal and postmenopausal disorder Right knee pain Right thigh pain Family history of colon cancer Dizziness Fatigue Pleuritic chest pain Dyspepsia Neck pain Leg pain, right Pain in left hand Bronchitis Sinus congestion Sinusitis Chest pain on breathing Surgical History Left humeral fracture resulting in 2 surgeries History of tonsillectomy and adenoidectomy History of bilateral cataract extraction Social History Smoking/Tobacco Use Status: Never Smoking risk assessment performed?: Yes Alcohol Intake: current Alcohol Intake frequency: holidays/special occasions only Drug use: Never Substance use type: does not use Housing: house Do you feel safe at home: Yes Do you feel safe in your relationship?: Yes PAWSS Have you Been Recently Intoxicated or Drunk Within the Last 30 days?: No Have you Ever Experienced Previous Episodes of Alcohol Withdrawal?: No Have you ever Experienced Withdrawal Seizures?: No Have you ever Experienced Delirium Tremens(DT)s?: No Have you ever undergone Alcohol Rehabilitation Treatment (i.e, inpt ot outpatient treatment programs)?: No Have you ever Experienced Blackouts?: No Have you ever Combined Alcohol with other Downers within the last 90 days?: No Have you ever Combined Alcohol with any other Substance of Abuse during the last 90 days?: No Positive Blood Alcohol level on Presentation? [PCS.BAL]: No Evidence of Increased Autonomic Activity (i.e. HR>120, tremor, sweating, agitation, nausea)?: No Result: 0
[2024-06-10 20:27] LABS: ALT 25 U/L (14-59); AST 22 U/L (15-37); Albumin 3.8 g/dL (3.4-5.0); Alkaline Phosphatase 96 U/L (46-116); Anion Gap 8.3 mmol/L (3-11); BUN 15 mg/dL (7-18); CO2 30.7 mmol/L (21.0-32.0); CREATININE 0.7 mg/dL (0.55-1.02); Chloride 107 mmol/L (98-107); Estimated GFR 92.98 (mL/min/1.73m2); Glucose 81 mg/dL (74-106); Lipase 46 U/L (16-77); Magnesium 1.9 mg/dL (1.8-2.4); Potassium 3.6 mmol/L (3.5-5.1); Sodium 146 mmol/L (136-145); Total Protein 7.3 g/dL (6.4-8.2)
[2024-06-10 20:28] LABS: Troponin I < 4 ng/L (<or=51)
[2024-06-10] MEDS: Normal Saline - Diluent 50 ML VIAL IJ (20:38)
[2024-06-10] MEDS: Omnipaque 350 MG/ML 100 ML BTL IJ (20:39)
[2024-06-10 21:00] LABS: COVID-19 PCR Negative (Negative); Influenza A PCR Negative (Negative); Influenza B PCR Negative (Negative); RSV PCR Negative (Negative)
[2024-06-10 21:02] LABS: Source Nasopharynx
--- NOTE | 2024-06-10 21:27 | DI.VRAD_ITS ---
PROCEDURE INFORMATION: Exam: CT Abdomen And Pelvis With Contrast Exam date and time: 06/10/2024 8:37 PM Age: 69 years old Clinical indication: Abdominal pain TECHNIQUE: Imaging protocol: Computed tomography of the abdomen and pelvis with contrast. Contrast material: OMNI 350; Contrast volume: 85 ml; Contrast route: INTRAVENOUS (IV); COMPARISON: CT THORAX CTA 01/20/2024 9:43 AM FINDINGS: Lungs: Mild bronchiectasis with bibasilar atelectasis. Diaphragm: Small hiatal hernia with diffuse distal esophageal wall thickening, esophagitis cannot be excluded, correlate clinically. Liver: Small low attenuating lesions within the liver the largest in the dome measuring 7 mm may represent small hemangioma or small cyst. Gallbladder and biliary ducts: Contracted gallbladder. Pancreas: Normal. No ductal dilation. Spleen: Normal. No splenomegaly. Adrenal glands: Normal. No mass. Kidneys and ureters: Normal. No hydronephrosis. Stomach and bowel: Scattered diverticuli without evidence of diverticulitis. Fecalization of the small bowel without evidence of obstruction or mass. Appendix: No evidence of appendicitis. Intraperitoneal space: 4.3 cm cystic lesion in the right lower quadrant, this could represent a mesenteric cyst. Vasculature: Unremarkable. No abdominal aortic aneurysm. Lymph nodes: Sabra mesentery with adjacent nonenlarged lymph nodes, likely represents mesenteric fibrosis/panniculitis. Urinary bladder: Diffuse bladder wall thickening more prominent in the anterior aspect may be secondary to incomplete distension, however, this could also represent cystitis in the proper clinical setting. Reproductive: Retroverted uterus with punctate calcifications may represent small degenerating fibroids. Bones/joints: Unremarkable. No acute fracture. Soft tissues: Unremarkable. IMPRESSION: 1. Mild bronchiectasis with bibasilar atelectasis. 2. 4.3 cm cystic lesion in the right lower quadrant, this could represent a mesenteric cyst. 3. Other noncritical findings as described above. Dictated and Authenticated by: Ailyn Nava MD. Ordering:EROS Lerner MD
[2024-06-10 21:58] VITALS: BP 124/70; PULSE 61; RESP 16; TEMP 36.6; O2SAT 98
== END 2024-06-10 22:02 | disposition home or self-care (01) ==
PROVIDERS: Emergency Provider Registered Nurse Emergency; PCP Family Medicine
DX: R10.2 Pelvic and perineal pain (principal); K66.8 Other specified disorders of peritoneum
CPT/HCPCS: 36415; 80053; 83690; 87637; 99285; 74177; 81003; 83735; 84484; 85025; 99284; J3490

== ENCOUNTER 2024-06-15 16:33 | Outpatient (REF) | payer MEDICARE, BC, SELFPAY ==
[2024-06-15 19:24] LABS: ESR 3 mm/hr (0-30)
== END 2024-06-15 16:34 | disposition home or self-care (01) ==
LOC: NCHCN 16:33
PROVIDERS: PCP Family Medicine; Visit Provider Family Medicine
DX: M79.18 Myalgia, other site (principal)
CPT/HCPCS: 85652

== ENCOUNTER 2025-03-08 02:55 | Outpatient (CLI) | payer MEDICARE, BC, SELFPAY ==
--- NOTE | 2025-03-08 | DI.RAD_ITS ---
Exam(s) RF BARIUM SWALLOW EXAM: RF BARIUM SWALLOW CLINICAL HISTORY: Dysphagia, R13.10 TECHNIQUE: 2D and realtime digital imaging was performed. CONTRAST MATERIAL: Oral barium Oral water soluble contrast was administered. COMPARISON: No exams were available for comparison FINDINGS: CHEST X-RAY: Preliminary chest x-ray unremarkable. Also no free air subjacent to the hemidiaphragms. ESOPHAGRAM: Performed standing and recumbent with air contrast technique. Swallowing mechanism appears grossly intact. No evidence of aspiration. No evidence of Zenker's diverticulum. The esophagus is not dilated. There are no fixed lesions evident in the esophagus. Small sliding-type hiatal hernia is noted. GE junction otherwise appears unremarkable. No Schatzki ring demonstrated. No prominent tertiary waves. No prominent reflux demonstrated. IMPRESSION: Small sliding-type hiatal hernia. No other obvious findings in the esophagus. Given the history here it might be prudent to perform a modified barium swallow which is performed our department in conjunction with the speech therapist. RADIATION DOSE DELIVERED: alexandria Ibanez=14.6 mGy
[2025-03-08] MEDS: Barium Sulfate 60% W/V 355 ML BTL 175 ML PO (11:26)
[2025-03-08] MEDS: Barium Sulfate 98% W/W 140 ML BTL 70 ML PO (11:27)
[2025-03-08] MEDS: Simethicone/Sod Bicarb/Cit Ac, 4 gram PACKET 1 PACKET PO (11:27)
== END 2025-03-08 03:15 ==
PROVIDERS: PCP Nurse Practitioner Family; Visit Provider Nurse Practitioner Family
DX: K44.9 Diaphragmatic hernia without obstruction or gangrene (principal)
CPT/HCPCS: 74221; J3490

== ENCOUNTER 2025-06-19 15:27 | Outpatient (REF) | payer MEDICARE, BC, SELFPAY | END 2025-06-19 15:28 | disposition home or self-care (01) | LOC: LBN 15:27 | PROVIDERS: PCP Nurse Practitioner Family; Visit Provider Nurse Practitioner Family | DX: R30.0 Dysuria (principal); N76.0 Acute vaginitis | CPT/HCPCS: 87086; 87480; 87510; 87660 ==